=== PATIENT | male | born 1980 | race Caucasian/White ===

== ENCOUNTER → 2019-09-11 14:45 | Outpatient (CLI) | payer BC, SELFPAY ==
[2019-09-11 14:50] LABS: Adenovirus F 40/41, stool Not Detected (NotDetected); Astrovirus Not Detected (NotDetected); Campylobacter Not Detected (NotDetected); Clostridium Difficile A/B, PCR Not Detected (NotDetected); Cryptosporidium Not Detected (NotDetected); Cyclospora Cayetanesis Not Detected (NotDetected); Entamoeba histolytica Not Detected (NotDetected); Enteroaggregative E coli Not Detected (NotDetected); Enterotoxigenic E coli Not Detected (NotDetected); Giardia lamblia Not Detected (NotDetected); Norovirus Not Detected (NotDetected); Plesimonas Shigalloides, PCR Not Detected (NotDetected); Rotavirus A Not Detected (NotDetected); Salmonella, PCR Not Detected (NotDetected); Sapovirus Not Detected (NotDetected); Shiga-like toxin E coli Not Detected (NotDetected); Shigella Enterovasive E coli Not Detected (NotDetected); Vibrio Cholerae Not Detected (NotDetected); Vibrio, PCR Not Detected (NotDetected); Yersinia Entercolitica, PCR Not Detected (NotDetected)
[2019-09-11 16:54] LABS: Enteropathogenic E coli Detected (NotDetected)
== END ==
PROVIDERS: Visit Provider Family Medicine
DX: R19.7 Diarrhea, unspecified (principal); A04.0 Enteropathogenic Escherichia coli infection
CPT/HCPCS: 87507

== ENCOUNTER → 2020-03-02 10:28 | Outpatient (CLI) | payer OTHER, SELFPAY ==
[2020-03-02 13:14] LABS: Coronavirus 19 IgG Antibody Negative (Negative); Coronavirus 19 IgM Antibody Negative (Negative)
== END ==
PROVIDERS: Visit Provider Surgery
DX: Z01.818 Encounter for other preprocedural examination (principal)
CPT/HCPCS: 36415; 86328

== ENCOUNTER 2020-03-03 07:59 | Day surgery (SDC) | payer OTHER, SELFPAY ==
[2020-03-02 13:23] VITALS: BMI 33.9
[2020-03-03 09:18] VITALS: BP 132/79; PULSE 77; RESP 18; TEMP 36.9; O2SAT 97
[2020-03-03 10:24] VITALS: BP 144/65; PULSE 75; RESP 18; O2SAT 97
--- NOTE | 2020-03-03 10:28 | HMH.OPNOTE ---
Date of procedure: 03/03/20 Pre-op Diagnosis:: 1.5 cm inclusion cyst mid back Post-op Diagnosis:: Same Procedure performed:: Excision of 1.5 cm inclusion cyst mid back Surgeon:: Paulie Jolly MD Anesthesia: local Estimated blood loss (mL): 10 Operative findings:: Inclusion cyst excised in toto Operative note:: After informed consent was obtained the patient was taken to the procedure room. He was maintained in a seated position. His mid back was prepped and draped in a sterile fashion. After infiltration local anesthetic an elliptical incision was made around the lesion. The deeper subcutaneous tissue was dissected with scalpel. The cyst was excised in toto and passed off for pathologic evaluation. Electrocautery was utilized to achieve hemostasis. Lateral flaps were elevated with electrocautery. Skin was then reapproximated with 3-0 nylon in an interrupted fashion. Dressings were applied and the patient was transferred to recovery in stable condition. Condition: stable Disposition: no change Specimens:: 1.5cm inclusion cyst mid back Complications:: no immediate
== END 2020-03-03 10:35 | disposition home or self-care (01) ==
LOC: OUTP 08:00
PROVIDERS: PCP Family Medicine; Visit Provider Surgery
PROC: (CPT 11402; principal; 2020-03-03 09:30)
DX: L72.8 Other follicular cysts of the skin and subcutaneous tissue (principal); Z87.39 Personal history of other diseases of the musculoskeletal system and connective tissue; Z72.0 Tobacco use
CPT/HCPCS: 11402

== ENCOUNTER → 2021-10-02 12:41 | Outpatient (CLI) | payer OTHER, SELFPAY | PROVIDERS: Visit Provider Nurse Practitioner | DX: Z20.822 Contact with and (suspected) exposure to COVID-19 (principal) | CPT/HCPCS: C9803; U0003; U0005 ==

== ENCOUNTER → 2021-10-04 15:47 | Outpatient (CLI) | payer OTHER, SELFPAY ==
[2021-10-04 17:46] LABS: Adenovirus,PCR Not Detected (NotDetected); Bordetella Pertussis Not Detected (NotDetected); Chlamydophila Pneumoniae, PCR Not Detected (NotDetected); Coronavirus 19, PCR Not Detected (NotDetected); Coronavirus 229E Not Detected (NotDetected); Coronavirus NL63 Not Detected (NotDetected); Coronavirus OC43 Not Detected (NotDetected); Coronovirus HKU1,PCR Not Detected (NotDetected); Human Metapneumovirus Not Detected (NotDetected); Influenza A, PCR Not Detected (NotDetected); Influenza AH1, 2009 Not Detected (NotDetected); Influenza AH1, PCR Not Detected (NotDetected); Influenza AH3,PCR Not Detected (NotDetected); Influenza B, PCR Not Detected (NotDetected); Mycoplasma Pneumoniae, PCR Not Detected (NotDetected); Parainfluenza 1, PCR Not Detected (NotDetected); Parainfluenza 3, PCR Not Detected (NotDetected); Parainfluenza 4, PCR Not Detected (NotDetected); Respiratory Syncytial Virus Not Detected (NotDetected); Rhinovirus/Enterovirus Not Detected (NotDetected)
[2021-10-04 18:11] LABS: Basophils # 0.1 K/mm3 (0-0.2); Basophils % 1.5 % (0.1-2.0); Eosinophils # 0.1 K/mm3 (0.0-0.4); Eosinophils % 3.3 % (0.1-12.0); Hematocrit 51.5 % (42.0-52.0); Hemoglobin 17.1 g/dL (14.1-18.0); Lymphocytes # 1.2 K/mm3 (0.7-4.5); Lymphocytes % 33.4 % (10-50); Mean Corpuscular HGB Conc 33.2 g/dL (31.8-35.4); Mean Corpuscular Volume 87.4 fl (80-94); Mean Platelet Volume 8.9 fl (7.4-10.4); Monocytes # 0.3 K/mm3 (0.1-1.0); Monocytes % 9.2 % (1.7-9.3); Neutrophils # 1.9 K/mm3 (1.8-7.8); Neutrophils % 52.6 % (37.0-80.0); Platelet Count 247 K/mm3 (142-424); Red Blood Count 5.89 M/mm3 (4.60-6.20); Red Cell Distribution Width 13.5 % (11.5-17.5); White Blood Count 3.6 K/mm3 (4.8-10.8)
[2021-10-04 19:58] LABS: Parainfluenza 2, PCR Detected (NotDetected)
== END ==
PROVIDERS: PCP Psychiatry & Neurology Sleep Medicine; Visit Provider Physician Assistant
DX: Z20.822 Contact with and (suspected) exposure to COVID-19 (principal); B34.9 Viral infection, unspecified
CPT/HCPCS: 36415; 85025; 87581; 87632; 87798; C9803; U0003; U0005

== ENCOUNTER 2022-06-13 19:36 | Emergency (ER) | payer OTHER, SELFPAY ==
[2022-06-13 19:39] VITALS: RESP 20; TEMP 37; O2SAT 96; BMI 36.6
--- NOTE | 2022-06-13 20:59 | PC.NURSE ---
at assessing pt injury
--- NOTE | 2022-06-13 21:13 | HMH.EDEXTP ---
Discharge Plan Disposition Patient Disposition: Home, Self-Care Chief Complaint: Extremity Problem,Nontraumatic Prescriptions Prescriptions: No Action No Known Home Medications Referrals Follow up/Referrals: Gamal Morrissey MD [Primary Care Provider] - See instructions Clinical Impressions Clinical Impression: Avulsion of finger Instructions Patient Instructions: DI for Avulsion Laceration (Not Requiring Sutures) Discharge ED Provider: Brian Carmona Extremity Problem HPI General Chief complaint: Extremity Problem,Nontraumatic Stated complaint: AO@06/13@1900@HOME LEFT FINGER INJURED Time Seen by Provider: 06/13/22 21:13 Mode of Arrival: Ambulatory Source of Information: Patient, Spouse and Medical Record Limitations: No Limitations Description of Symptoms (Recalled from ER Triage Doc. by RN): pt states he was cleaning his buffing pad and his knife slipped and cut the side of his left index finger. pt c/o stinging History of Present Illness HPI Narrative: acute avulsion lac to distal lt index finger Complaint: other Onset (ago): hour(s) Location: left, upper extremity and other (index finger ) Associated symptoms: denies other symptoms Related Data Home Medications Medication Instructions Recorded Confirmed No Known Home Medications 03/02/20 06/13/22 Allergies Allergy/AdvReac Type Severity Reaction Status Date / Time venom-wasp Allergy Intermediate Hives Verified 03/15/20 09:33 PFSH PFSH 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 current occupational exposures/hazards: No caffeine: Yes ROS Obtained: Yes All systems reviewed & no additional complaints except as documented Physical Exam General General appearance: alert Head Head exam: normocephalic Eye Eye exam: Present PERRL and EOMI ENT ENT exam: Present mucous membranes moist Neck Neck exam: Present trachea midline Respiratory Respiratory exam: Absent respiratory distress Cardiovascular Cardiovascular exam: Present regular rate Expanded Upper Extremity Exam Left: Hand exam: Present full ROM and skin avulsion (avulsion flap distal lt index finger - not amenable to lac repair - ); Absent subungual hematoma Vascular exam: Normal capillary refill and radial pulse Neurological Exam Neurological exam: Present alert, oriented X3 and CN II-XII intact Skin Skin exam: Absent rash Medical Decision Making Medical Records Medical records reviewed: Yes I reviewed the patient's medical records. Jarad Inquiry Pt receiving controlled substance: No Vital Signs: 06/13/22 19:39 Temperature 98.6 F Temperature Source Oral Respiratory Rate 20 02 Sat by Pulse Oximetry 96 Oxygen Delivery Method Room Air Medical Decision Narrative: avulsion lac to distal lt index finger 1 cm Critical Care Time Critical Care Time Critical Care Time: No Attestation: On 06/13/22, the high probability of a clinically significant, sudden or life threatening deterioration of the following system(s) required my full and direct attention, intervention and personal management. The time I documented below is in addition to time spent performing reported procedures but includes the following listed in this critical care notation.
[2022-06-13 21:22] VITALS: BP 124/78; PULSE 80; RESP 20; TEMP 37; O2SAT 96
== END 2022-06-13 21:23 | disposition home or self-care (01) ==
PROVIDERS: Emergency Provider Emergency Medicine; PCP Family Medicine
DX: S61.211A Laceration without foreign body of left index finger without damage to nail, initial encounter (principal); W26.0XXA Contact with knife, initial encounter
CPT/HCPCS: 99282

== ENCOUNTER 2023-03-02 19:38 | Emergency (ER) | payer OTHER, SELFPAY ==
[2023-03-02 19:39] VITALS: BP 138/80; PULSE 117; RESP 16; TEMP 36.7; O2SAT 97; BMI 38.0
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
[2023-03-02 19:48] VITALS: BMI 38.0
--- NOTE | 2023-03-02 19:51 | ECG_ITS ---
APPROVED REPORT Exam: Resting ECG HR:105 bpm ECG Measurements Heart Rate 105 AXES MO 149 P 69 QRSd 105 QRS 43 QT 326 T 35 QTc 387 Conclusion SINUS TACHYCARDIA NONSPECIFIC T-WAVE ABNORMALITY ABNORMAL RHYTHM ECG UNCONFIRMED REPORT Electronically signed by : David Johnson MD 03/03/2023 08:59:28
[2023-03-02 20:01] VITALS: BP 138/80; PULSE 99; O2SAT 92
[2023-03-02 20:09] LABS: Basophils # 0.1 K/mm3 (0-0.2); Basophils % 0.8 % (0.1-2.0); Eosinophils # 0.4 K/mm3 (0.0-0.4); Hematocrit 48.9 % (42.0-52.0); Lymphocytes # 4.3 K/mm3 (0.7-4.5); Lymphocytes % 31.9 % (10-50); Mean Corpuscular HGB Conc 32.7 g/dL (31.8-35.4); Mean Corpuscular Hemoglobin 28.2 pg (27.0-31.2); Mean Corpuscular Volume 86.2 fl (80-94); Monocytes # 0.7 K/mm3 (0.1-1.0); Monocytes % 5.4 % (1.7-9.3); Neutrophils # 7.9 K/mm3 (1.8-7.8); Neutrophils % 58.9 % (37.0-80.0); Platelet Count 324 K/mm3 (142-424); Red Blood Count 5.67 M/mm3 (4.60-6.20); Red Cell Distribution Width 13.6 % (11.5-17.5); White Blood Count 13.4 K/mm3 (4.8-10.8)
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
--- NOTE | 2023-03-02 20:15 | PC.NURSE ---
pt is at ct
[2023-03-02 20:16] LABS: Chloride 102 mmol/L (98-107)
[2023-03-02 20:17] LABS: Potassium 3.8 mmoL/L (3.5-5.1); Sodium 137 mmol/L (136-145)
[2023-03-02 20:20] LABS: Alanine Aminotransferase 54 U/L (12-78); Albumin Level 4.1 g/dl (3.5-5.0); Albumin/Globulin Ratio 1.2 (1.1-1.8); Alkaline Phosphatase 91 U/L (38-126); Anion Gap 13.8 mEq/L (5-15); Aspartate Amino Transferase 48 U/L (17-59); Blood Urea Nitrogen 17 mg/dl (9-20); Calcium 9.1 mg/dl (8.4-10.2); Carbon Dioxide 25 mmol/L (22.0-30.0); Creatinine Clearance Estimated 147 mL/min (50-200); Estimated Glomerular Filt Rate 67 ml/min (>60); GFR (African American) 81 ML/MIN (>60); Globulin 3.3 g/dL (1.3-3.2); Glucose 131 mg/dl (74-100); Total Protein,Serum 7.4 g/dl (6.3-8.2)
[2023-03-02 20:22] LABS: Bilirubin,Total 0.1 mg/dl (0.2-1.3)
[2023-03-02 20:49] VITALS: BP 118/63; PULSE 93; RESP 18; TEMP 36.7; O2SAT 95
== END 2023-03-02 21:03 | disposition home or self-care (01) ==
PROVIDERS: Family Medicine; Emergency Provider Emergency Medicine; PCP Family Medicine
DX: R07.81 Pleurodynia (principal); V86.65XA Passenger of 3- or 4- wheeled all-terrain vehicle (ATV) injured in nontraffic accident, initial encounter; F17.210 Nicotine dependence, cigarettes, uncomplicated
CPT/HCPCS: 70450; 71260; 72125; 74177; 80053; 85025; 93005; 99284; 99285; Q9967

== ENCOUNTER 2023-09-21 02:56 | Emergency (ER) | payer OTHER, SELFPAY ==
--- NOTE | 2023-09-21 03:03 | XR_ITS ---
PROCEDURE INFORMATION: Exam: XR Chest Exam date and time: 09/21/2023 3:17 AM Age: 43 years old Clinical indication: Cough; Additional info: Cough x6 wks, SOA TECHNIQUE: Imaging protocol: Radiologic exam of the chest. Views: 2 views. COMPARISON: CT CHEST W CON 03/02/2023 8:11 PM FINDINGS: Lungs: Unremarkable. No consolidation. Pleural spaces: Unremarkable. No pleural effusion. No pneumothorax. Heart/Mediastinum: Unremarkable. No cardiomegaly. Bones/joints: Unremarkable. IMPRESSION: No acute findings.
[2023-09-21 03:06] VITALS: BP 148/105; PULSE 108; PULSE 120; RESP 15; TEMP 36.8; O2SAT 95; O2SAT 97; BMI 39.3
--- NOTE | 2023-09-21 03:09 | ED_ITS ---
Discharge Plan Disposition Patient Disposition: Home, Self-Care Condition: Good Prescriptions Prescriptions: New doxycycline hyclate 100 mg tablet 100 mg PO BID 5 Days Qty: 10 0RF prednisone 50 mg tablet 50 mg PO DAILY 5 Days Qty: 5 0RF [id number] [Bromfed DM] 2-30-10 mg/5 mL syrup 5 ml PO Q6H PRN (Reason: allergy symptoms) Qty: 118 0RF cetirizine [Zyrtec] 10 mg tablet 10 mg PO DAILY Qty: 30 0RF fluticasone propionate [Flonase Allergy Relief] 50 mcg/actuation spray,suspension 1 spray intranasal DAILY Qty: 16 0RF Rx Instructions: administer into each nostril Referrals Follow up/Referrals: Gamal Morrissey MD [Primary Care Provider] - See instructions Activity Restrictions/Add. Instructions Additional Instructions/Restrictions: You were evaluated in the emergency department today. I recommend that you stop smoking, as this can prolong your cough and symptoms. 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 You are already given your initial dose of nestor roids and antibiotics today, so you will not need antibiotic again until tonight, and you will take the steroid tomorrow. Use your inhaler every 4-6 hours as needed for wheezing. Take Tylenol and ibuprofen at home as needed for pain and fevers. Follow-up with your primary care provider over the next week for reassessment. Return to the emergency department for any new or worsening symptoms. Clinical Impressions Clinical Impression: Bronchitis, Wheezing Instructions Patient Instructions: DI for Chronic Bronchitis, DI for Acute Bronchitis Discharge ED Provider: [facility] HPI General Chief complaint: Upper Respiratory Infection Stated complaint: cough Time Seen by Provider: 09/21/23 03:01 History of Present Illness HPI narrative: This patient is a 43-year-old male with history of tobacco abuse presenting to the emergency department for evaluation with concern for persistent cough for 1.5 months now. He states that it initially started out with a head cold, however he cannot get rid of the cough. He states that he coughs to the point where he gets lightheaded and has even passed out before. He also notes that he hears himself wheezing when he lies down. He denies any prior diagnoses of COPD or asthma in the past. He states that he passed out before last as a result of coughing. He has not been seen for this before. He came in tonight because he was cleaning out his wood stove at home when he started coughing and couldn't stop. Related Data Previous Rx's Medication Instructions Recorded arrosidmbfzlfbz-[id number] 5 ml PO Q6H PRN allergy symptoms 09/21/23 2 mg-30 mg-10 mg/5 mL oral syrup #118 mL (Bromfed DM) cetirizine 10 mg tablet (Zyrtec) 10 mg PO DAILY #30 tabs 09/21/23 doxycycline hyclate 100 mg tablet 100 mg PO BID 5 days #10 tabs 09/21/23 fluticasone propionate 50 1 spray intranasal DAILY #16 grams 09/21/23 mcg/actuation nasal spray,suspension (Flonase Allergy Relief) prednisone 50 mg tablet 50 mg PO DAILY 5 days #5 tabs 09/21/23 Allergies Allergy/AdvReac Type Severity Reaction Status Date / Time venom-wasp Allergy Intermediate Hives Verified 03/15/20 09:33 [facility] Disclaimer: The information contained in this section may have been updated after the patient was seen, as this information can be updated by other users. 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 current occupational exposures/hazards: No caffeine: Yes ROS Obtained: Yes All systems reviewed & no additional complaints except as documented Physical Exam General General appearance: alert and in no apparent distress Head Head exam: atraumatic and normocephalic Eye Eye exam: Present normal appearance, PERRL and EOMI ENT ENT exam: Present normal exam, normal oropharynx, mucous membranes moist and normal external ear exam Neck Neck exam: Present normal inspection, full ROM and trachea midline; Absent tenderness Chest Chest inspection: Present normal inspection and symmetric chest wall rise; Absent tenderness Respiratory Respiratory exam: Present normal lung sounds bilaterally; Absent respiratory distress, wheezes, stridor or accessory muscle use Cardiovascular Cardiovascular exam: Present normal rhythm and tachycardia Abdominal Exam Abdominal exam: Present soft; Absent distention, tenderness or guarding Extremities Exam Extremities exam: Present normal inspection, full ROM and normal capillary refill; Absent tenderness or edema Back Exam Back exam: Present normal inspection and full ROM; Absent tenderness Neurological Exam Neurological exam: Present alert, oriented X3, CN II-XII intact and normal gait; Absent motor sensory deficit Psychiatric Psychiatric exam: Present normal affect and normal mood Skin Skin exam: Present warm and dry Medical Decision Making Medical Records Medical records reviewed: Yes I reviewed the patient's medical records. Jarad Inquiry Pt receiving controlled substance: No Vital Signs: 09/21/23 03:06 09/21/23 03:25 09/21/23 03:25 Temperature 98.2 F Temperature Source Oral Pulse Rate 124 H 108 H Pulse Rate [Right Brachial] 108 H Respiratory Rate 15 Blood Pressure Blood Pressure [Right Arm] 148/105 H Blood Pressure Mean [Right Arm] 119 Blood Pressure Source [Right Arm] Automatic Cuff Blood Pressure Position [Right Arm] Sitting 02 Sat by Pulse Oximetry 95 Oxygen Delivery Method Room Air 09/21/23 03:06 Temperature Temperature Source Pulse Rate 120 H Pulse Rate [Right Brachial] Respiratory Rate Blood Pressure 148/105 H Blood Pressure [Right Arm] Blood Pressure Mean [Right Arm] Blood Pressure Source [Right Arm] Blood Pressure Position [Right Arm] 02 Sat by Pulse Oximetry 97 Oxygen Delivery Method Room Air Lab Data Lab results reviewed: Yes I reviewed the patient's lab results. Orders (Tests/Meds): ED MEDICATIONS Discontinued Medications Generic Name Dose Route Start Last Admin Trade Name Freq PRN Reason Stop Dose Admin Albuterol Sulfate 2 puff 09/21/23 03:40 09/21/23 03:47 Albuterol-Hfa 90mcg/Puff Inhaler 8gm 09/21/23 03:41 2 puff ONCE ONE Administration Albuterol/Ipratropium 3 ml 09/21/23 03:14 09/21/23 03:24 Ipratropium/Albuterol 3 Ml Neb 09/21/23 03:15 3 ml ONCE ONE Administration Doxycycline Hyclate 100 mg 09/21/23 03:40 09/21/23 03:46 Doxycycline Hycl 100 Mg Tablet PO 09/21/23 03:41 100 mg ONCE ONE Administration Miscellaneous 1 unit 09/21/23 03:38 09/21/23 03:47 Aerochamber/Optihaler MC 09/21/23 03:39 1 unit ONCE ONE Administration Prednisone 60 mg 09/21/23 03:38 09/21/23 03:46 Prednisone 20mg Tab PO 09/21/23 03:39 60 mg ONCE ONE Administration ORDERS Category Date Time Status XR chest 2V Stat Exams 09/21/23 03:03 Taken ECG initial Besson Routine Y 09/21/23 03:18 Completed ECG Data Tracing #1: I reviewed this ECG and interpreted as documented below: Sinus tachycardia with a ventricular rate of [address] changes concerning for ischemia. Q waves noted in II and aVF, which were also present on prior EKG. No significant changes noted from prior EKG. ECG initial impression date: 09/21/23 ECG initial impression time: 03:20 Medical Decision Narrative: In summary, this patient is a 43-year-old male presenting to the Emergency Department for evaluation of cough for 1.5 months and wheezing. Differential diagnoses considered include but are not limited to viral syndrome, bronchitis, pneumonia, COPD, asthma, respiratory failure. Ruling out the most morbid conditions drove assessment. It should be noted patient's history includes tobacco abuse which is not at goal therapy. This complicates all aspects of care by increasing patient's risk for morbidity. On exam, the patient is nontoxic-appearing. He has reassuring cardiopulmonary exam with no notable wheezing or rhonchi, however breath sounds are slightly diminished. He is slightly tachycardic, but oxygen saturation is normal on room air. Workup included 2 view chest x-ray and EKG. Given diminished breath sounds, patient was given a DuoNeb to assess for symptomatic improvement. I independently interpreted x-ray prior to the radiologist read and noted no obvious large focal consolidation, pneumothorax, cardiomegaly, or other concerns. Please see their read for final interpretation. EKG is reassuring. He does have Q waves, which were also present on prior EKG. On reassessment, he had good improvement after administration of DuoNeb. Given his extensive smoking history, I feel he may have some component of COPD. Given this, I gave him a very short course of doxycycline as well as prednisone in addition to an albuterol inhaler. He was also given prescriptions for Zyrtec, Flonase, and Bromfed for symptomatic improvement. At this time, exam is reassuring and I feel the patient is appropriate for discharge with close follow-up with his primary care provider for reassessment over the next week. He expressed understanding agreement. I counseled him on smoking cessation, and he was discharged in stable condition after all questions were answered. Critical Care Critical Care Time Critical Care Time: No
--- NOTE | 2023-09-21 03:18 | ECG_ITS ---
APPROVED REPORT Exam: Resting ECG HR:101 bpm ECG Measurements Heart Rate 101 AXES NV 143 P 62 QRSd 109 QRS 30 QT 338 T 8 QTc 396 Conclusion SINUS TACHYCARDIA Isloated Q in III - probable normal variant O/W NORMAL ECG UNCONFIRMED REPORT Electronically signed by : David Johnson MD 09/22/2023 08:21:04
[2023-09-21] MEDS: IPRATROPIUM/ALBUTEROL 3 ML NEB IH (03:24)
[2023-09-21 03:25] VITALS: PULSE 108; PULSE 124
[2023-09-21] MEDS: predniSONE 20MG TAB 60 MG PO (03:46)
[2023-09-21] MEDS: DOXYCYCLINE HYCL 100 MG TABLET PO (03:46)
[2023-09-21] MEDS: AEROCHAMBER/OPTIHALER 1 UNIT MC (03:47)
[2023-09-21] MEDS: ALBUTEROL-HFA 90MCG/PUFF INHALER 8GM 2 PUFF IH (03:47)
[2023-09-21 04:09] VITALS: BP 128/83; PULSE 107; RESP 18; TEMP 36.6; O2SAT 96
== END 2023-09-21 04:10 | disposition home or self-care (01) ==
PROVIDERS: Emergency Provider Emergency Medicine; PCP Family Medicine
DX: J20.9 Acute bronchitis, unspecified (principal); R06.2 Wheezing; F17.210 Nicotine dependence, cigarettes, uncomplicated; R00.0 Tachycardia, unspecified
CPT/HCPCS: 71046; 93005; 99284

== ENCOUNTER 2023-11-21 09:58 | Outpatient (CLI) | payer OTHER, SELFPAY ==
[2023-11-21 10:34] LABS: Basophils # 0.1 K/mm3 (0-0.2); Basophils % 1.2 % (0.1-2.0); Eosinophils # 0.3 K/mm3 (0.0-0.4); Eosinophils % 2.7 % (0.1-12.0); Hematocrit 49.1 % (42.0-52.0); Hemoglobin 16.2 g/dL (14.1-18.0); Lymphocytes # 3.3 K/mm3 (0.7-4.5); Mean Corpuscular HGB Conc 33.1 g/dL (31.8-35.4); Mean Corpuscular Hemoglobin 29.2 pg (27.0-31.2); Mean Corpuscular Volume 88.2 fl (80-94); Mean Platelet Volume 8.3 fl (7.4-10.4); Monocytes # 0.7 K/mm3 (0.1-1.0); Monocytes % 6.5 % (1.7-9.3); Neutrophils # 6.5 K/mm3 (1.8-7.8); Neutrophils % 59.6 % (37.0-80.0); Platelet Count 309 K/mm3 (142-424); Red Blood Count 5.57 M/mm3 (4.60-6.20); Red Cell Distribution Width 13.8 % (11.5-17.5); White Blood Count 10.9 K/mm3 (4.8-10.8)
[2023-11-21 11:00] LABS: Alanine Aminotransferase 56 U/L (12-78); Albumin Level 4.1 g/dl (3.5-5.0); Albumin/Globulin Ratio 1.5 (1.1-1.8); Alkaline Phosphatase 86 U/L (38-126); Anion Gap 10.3 mEq/L (5-15); Aspartate Amino Transferase 32 U/L (17-59); Bilirubin,Total 0.4 mg/dl (0.2-1.3); Blood Urea Nitrogen 15 mg/dl (9-20); Calcium 9.6 mg/dl (8.4-10.2); Carbon Dioxide 26 mmol/L (22.0-30.0); Chloride 107 mmol/L (98-107); Cholesterol 299 mg/dl (140-200); Estimated Glomerular Filt Rate 107 ml/min (>60); GFR (African American) 129 ML/MIN (>60); Globulin 2.8 g/dL (1.3-3.2); Glucose 152 mg/dl (74-100); HDL Cholesterol 30 mg/dl (40-60); Potassium 4.3 mmoL/L (3.5-5.1); Sodium 139 mmol/L (136-145); Total Protein,Serum 6.9 g/dl (6.3-8.2); Triglycerides 289 mg/dl (30-150); VLDL Cholesterol 58 mg/dL (0-40)
[2023-11-21 11:06] LABS: Erythrocyte Sedimentation Rate 4 mm/hr (0-15)
[2023-11-21 11:11] LABS: Direct LDL Cholesterol 189.58 mg/dL (100-129)
[2023-11-21 11:14] LABS: Troponin I < 0.01 ng/ml (0.00-0.034)
[2023-11-21 11:16] LABS: 25-OH Vitamin D, Total 25.9 ng/mL (30-100)
[2023-11-21 11:31] LABS: Prostate Specific Ag Screen 0.5 ng/ml (0.0-4.0); Thyroid Stimulating Hormone 1.37 uIU/mL (0.465-4.68)
[2023-11-21 11:50] LABS: Vitamin B12 349 pg/mL (239-931)
[2023-11-29 04:29] LABS: Testosterone, Total, LC/MS 382 ng/dL (.)
== END 2023-11-21 23:59 ==
LOC: LAB 10:00
PROVIDERS: PCP Physician Assistant; Visit Provider Physician Assistant
DX: R07.9 Chest pain, unspecified (principal); R53.83 Other fatigue; E55.9 Vitamin D deficiency, unspecified; E78.5 Hyperlipidemia, unspecified; R73.09 Other abnormal glucose; Z12.5 Encounter for screening for malignant neoplasm of prostate; Z13.220 Encounter for screening for lipoid disorders
CPT/HCPCS: 36415; 80053; 80061; 82306; 82607; 84403; 84443; 84484; 85025; 85651; G0103

== ENCOUNTER 2023-12-04 07:27 | Outpatient (CLI) | payer OTHER, SELFPAY ==
[2023-12-04] VITALS (9 sets, daily range): BP systolic 109–140; BP diastolic 64–89; PULSE 58–88; RESP 16–17; TEMP 36.3; O2SAT 94–96; BMI 39.4
--- NOTE | 2023-12-04 07:29 | CA_ITS ---
APPROVED REPORT EXAM: Comprehensive 2D, Doppler, and color-flow Echocardiogram Marketing Specialist: Tara Ellison CRT Ht: 6 ft 1 in Wt: 299lbs BSA: 2.55 BP: 143/86 mmHg Indications: Abnormal ECG, Chest Pain, Shortness of Breath, Obesity, Fatigue 2D Dimensions Left Atrium 3.53 cm LA Volume 30.50 mL LVOT 2.16 cm (M/F) 1.5-2.5 LA Volume Index 12.00 mL/m2 (M/F) 16-34 EF AP4 50.80 % GL Strain -13.9 % M-Mode Dimensions RVDd 2.97 cm (0.9-2.6) LVDd 4.62 cm (3.5-5.7) Ao Diam 3.99 cm (2.0-3.7) LVDs 2.86 cm (3.5-5.7) IVSd 1.75 cm (0.6-1.1) PWd 0.82 cm (0.6-1.1) EF (Teich) 68.40% FS 38.10% EDV (Teich) 98.30 mL TAPSE 2.22 (<1.7) ESV (Teich) 31.10 mL LV Diastology E Decel Time 242 (160-240 msec) E/A Ratio 0.74 MED E' 7.3 (>= 7 cm/sec) MED A' 10.10 cm/s E'/MED E' Ratio 5.32 (<= 14) LAT E' 11.0 (>= 10 cm/sec) LAT A' 12.60 cm/s E/LAT E' Ratio 3.53 (<= 14) Aortic Valve AoV Peak Marlon. 122.0 (50-130 cm/s) AO Peak GR. 6.10 mmHg Mitral Valve MV E Max Marlon. 39.0 (40-130 cm/s) MV A Velocity 52.0 (40-130 cm/s) E/A Ratio 0.74 MV Decel. Time 242 (160-240 ms) Tricuspid Valve TR P. Velocity 234.00 cm/s RAP Estimate 10.00 mmHg RVSP 32.00 mmHg Left Ventricle The left ventricle is normal size. The left ventricular systolic function is normal. The left ventricular ejection fraction is within the normal range. There is normal left ventricular wall thickness. There is normal LV segmental wall motion. The left ventricular diastolic function is normal. LVEF is 55%. Right Ventricle The right ventricle is normal size. The right ventricular systolic function is normal. Atria The left atrium size is normal. The right atrium size is normal. There is no Doppler evidence of interatrial shunt. Aortic Valve The aortic valve opens well. There is no aortic valvular stenosis. No aortic regurgitation is present. Mitral Valve The mitral valve is normal in structure. No evidence of mitral valve stenosis. There is no mitral valve regurgitation noted. Tricuspid Valve The tricuspid valve leaflets are thin and pliable. Trace tricuspid regurgitation. There is insufficient TR jet to estimate RVSP. Pulmonic Valve The pulmonary valve is normal in structure. Trace pulmonic regurgitation. Great Vessels The aortic root is normal in size. The ascending aorta is normal in size. IVC is normal in size and collapses >50% with inspiration. Pericardium There is no pericardial effusion. Other Information Study Quality: Fair Conclusion Normal biventricular systolic function. No significant valvular stenosis or regurgitation. Electronically signed by : Vidhya Gomez MD 12/06/2023 22:27:35
[2023-12-04] MEDS: METOPROLOL TARTRATE 50MG TABLET PO (08:37)
[2023-12-04] MEDS: IVABRADINE HCL 7.5MG TABLET PO (08:37)
[2023-12-04] MEDS: METOPROLOL TARTRATE 50MG TABLET *IVABRADINE+METOPROLOL REGIMINE 50 MG PO (09:25)
--- NOTE | 2023-12-04 10:12 | CT_ITS ---
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 A noncontrast coronary calcium scan was performed. A CT attenuation threshold of 130 Hounsfield units (HU) was used for the detection of calcium in contiguous voxels of 1 sq mm in area to be counted as individual lesions. Bolus tracking in the ascending aorta with a threshold of 180 HU was performed. Immediately afterwards, ECG synchronized cardiac CT was then performed from the cardiac base to apex using retrospective gating with ECG tube current modulation. A total of 85 mL of Isovue 370 mg/mL contrast medium was administered at 5 mL/sec followed by a saline flush using a biphasic injection protocol. A tube voltage of 120 KVp was used. The patient received the following medications prior to the cardiac CT. 125 mg of oral metoprolol 15 mg of oral ivabradine 0.8 mg of sublingual nitroglycerin The average heart rate at the time of acquisition was 51 bpm and regular. Image Reconstruction Transaxial images were reconstructed at 0.67 mm slide thickness. Data was reviewed interactively on an advanced workstation capable of 2 and 3-dimensional displays in all conventional reconstruction formats, including multiplanar reformations, maximum intensity projections, curved multiplanar reformations, and volume rendered reconstructions. When applicable, selected routine images describing the relevant coronary anatomy and pathology were saved and sent to PACS. Complications None Technical Quality Overall image quality was suboptimal. Coronary artery opacification was adequate. Total DLP (Dose-Length Product) is 2997.9 mGy-cm. The reported value represents the total of one or more individual components during the CT acquisition of this date and at this time, and as such, the same value may appear in more than one CT report depending on the interpreting/reporting physicians. COMPARISON None FINDINGS CT Coronary Calcium Scoring LMA (Left Main Artery) = 69 LAD (Left Anterior Descending) = 161 LCX (Left Coronary Circumflex) = 20 RCA (Right Coronary Artery) = 2 Total Calcium Score = 252 using the AJ-130 method. The observed calcium score of 252 is at 98th percentile for subjects of the same age, sex, and race/ethnicity. The interpretation of the calcium heart score is based on the following continuum*: 0 = no calcified plaque detected (risk of coronary artery disease is very low ??? less than 5%) 1-10 = calcium detected in extremely minimal levels (risk of coronary diseases is still low ??? less than 10%) 11-100 = mild levels of plaque detected with certainty (mild or minimal narrowing of heart arteries is likely) 101-400 = definite,at least moderate levels of plaque detected (relatively high risk of a heart attack within 3-5 years) >401-999 = extensive levels of plaque detected (high risk of heart attack, high levels of vascular disease are present, high likelihood of at least one significant coronary narrowing) *The calcium heart score quantifies the burden of coronary calcification/plaque in the coronary arteries. The calcium heart score is not able to evaluate the presence or burden of non-calcified (i.e. soft) plaque. There is no identifiable calcification in the aortic valve, mitral annulus or mitral valve, pericardium, or myocardium. Coronary CT Angiography The coronary arterial system is right dominant. Quantitative Stenosis Grading: Left Main (LM): The left main originates normally from the left sinus of Valsalva. The LM bifurcates into the left anterior descending artery and left circumflex artery. The LM is patent with no evidence of atherosclerosis. Left Anterior Descending (LAD) and Diagonal Branches: The LAD gives off 2 diagonal branches. There is mixed calcified/noncalcified plaque in the proximal LAD and involving the first diagonal branch, with up to 70-90% luminal stenosis in the proximal LAD segment. Left Circumflex (LCX) and Obtuse Marginals (OM): The LCX gives off 1 Obtuse Marginal (OM) branch. There are scattered foci of calcified plaque in the proximal LCx, but without luminal stenosis. Right Coronary Artery (RCA): The RCA originates normally from the right sinus of Valsalva. The RCA gives off a posterior descending artery (PDA) and posterolateral (PL) branches. There is 1 focus of calcification in the proximal RCA, but without luminal stenosis. Non-Coronary Cardiac Findings: Analysis of the left ventricular (LV) structure and function was performed after 3-D reconstruction of the LV from axial images, with user-corrected automatic contouring for assessment of LV volumes and user-defined reconstruction from oblique planes for measurement of 3-D cardiac structure and function. -The left ventricle systolic function is normal. -There is no left atrial appendage filling defect. Two right pulmonary veins and two left pulmonary veins drain normally into the left atrium. -No pericardial thickening or calcification. -Central and branch pulmonary arteries in the [id number] are unremarkable. -Thoracic aorta within the visualized thoracic aortic-branches in the [id number] is unremarkable. Extracardiac Structures No significant extra-cardiac findings. Note, however, that this study is focused on the cardiac findings. IMPRESSION -Presence of coronary calcification with an Agatston score = 252 using the AJ-130 method. -The observed calcium score of 252 is at 98th percentile for subjects of the same age, sex, and race/ethnicity. -Presence of significant flow-limiting atherosclerosis of the proximal LAD segment (involving the first diagonal branch). -CAD-RADS 4A. Management recommendations per ACC/AHA guidelines*, as clinically appropriate. *Recommendations: CAD RADS 0: Reassurance. Consider non-atherosclerotic causes of chest pain. CAD RADS 1: Consider non-atherosclerotic causes of chest pain. Consider preventive therapy and risk factor modification. CAD RADS 2: Consider non-atherosclerotic causes of chest pain. Consider preventive therapy and risk factor modification, particularly for patients with nonobstructive plaque in multiple segments. CAD RADS 3: Consider further functional testing. Consider symptom-guided anti-ischemic and preventive pharmacotherapy as well as risk factor modification per published guideline statements. CAD RADS 4A: Consider further functional testing or invasive coronary angiography with revascularization per published guideline statements. Consider symptom-guided anti-ischemic and preventive pharmacotherapy as well as risk factor modification per published guideline statements. CAD RADS 4B: Invasive coronary angiography recommended with revascularization per published guideline statements. Consider symptom-guided anti-ischemic and preventive pharmacotherapy as well as risk factor modification per published guideline statements. CAD RADS 5: Consider invasive angiography and/or viability assessment with revascularization per published guideline statements. Consider symptom-guided anti-ischemic and preventive pharmacotherapy as well as risk factor modification per published guideline statements. CRITICAL RESULT None COMMUNICATION Per this written report The coronary and cardiac findings of this CCTA were reviewed, reported, and signed by Jermaine Gomez MD (Accredited Legal Secretary) Conclusion Electronically signed by : Vidhya Gomez MD 12/09/2023 11:55:18
[2023-12-04] MEDS: NITROGLYCERIN 0.4MG SL TABLET 0.800000000000000044 MG SL (10:29)
[2023-12-04] MEDS: METOPROLOL TARTRATE 5MG/5ML VIAL 5 MG IV (10:38)
[2023-12-04] MEDS: 0.9 % SODIUM CHLORIDE 50 ML VIAL 80 ML IV (11:06)
[2023-12-04] MEDS: SODIUM CHLORIDE 0.9% 10ML SYR (RAD ONLY) 10 ML IV (11:07)
[2023-12-04] MEDS: IOPAMIDOL-370 (76%);100ML BOTTLE 170 ML IV (11:07)
== END 2023-12-04 11:15 | disposition home or self-care (01) ==
LOC: RT 07:27 → RAD 08:25
PROVIDERS: PCP Physician Assistant; Visit Provider Internal Medicine
DX: R06.09 Other forms of dyspnea (principal); R07.9 Chest pain, unspecified; I25.10 Atherosclerotic heart disease of native coronary artery without angina pectoris; I25.84 Coronary atherosclerosis due to calcified coronary lesion; R94.31 Abnormal electrocardiogram [ECG] [EKG]
CPT/HCPCS: 75571; 75574; 93306; Q9967

== ENCOUNTER 2023-12-31 12:59 | Observation (INO) | payer OTHER, SELFPAY ==
[2023-12-31] VITALS (21 sets, daily range): BP systolic 113–151; BP diastolic 59–91; PULSE 67–91; RESP 14–19; TEMP 36.5–36.9; O2SAT 94–99; BMI 39.4
--- NOTE | 2023-12-31 07:04 | IR_ITS ---
APPROVED REPORT Patient Location: Outpatient PROCEDURES Left heart catheterization Left ventriculogram Selective coronary angiogram Drug-eluting stent deployment to the ostial proximal and mid dominant right coronary artery Drug-eluting stent deployment to the proximal LAD extending into the first diagonal artery Attempted angioplasty of a chronically occluded LAD INDICATION Coronary artery disease, Abnormal CCTA, Angina pectoris Informed consent was obtained prior to the procedure. COMPLICATIONS NONE Estimated Blood Loss: LESS THAN 10 ML TECHNIQUE One percent lidocaine used to anesthetize the right anterior aspect of the wrist. The right radial artery was accessed via the Seldinger technique. A 6 [place] sheath was placed in the right radial artery. 2.5 mg of Verapamil, 800 mcg of nitroglycerin, 1mg Lidocaine and 5000 U Heparin were given through the arterial sheath. The papa catheter was also used to perform left heart catheterization, left ventriculogram and selective coronary angiogram. At the end of the diagnostic angiogram therapeutic heparin was administered giving a therapeutic ACT and the guide catheter was placed in left main artery followed by Choice PT extra-support wire being placed into the LAD and first diagonal artery. A 3.5 x 22 mm Girish frontier stent was placed in the proximal LAD and deployed at 16 dianne reducing the stenosis. MARY ANNE-3 flow was present before and after the procedure. A 3.5 x 12 mm Elrod frontier stent was placed in the proximal to midportion of the stent and deployed at 24 dianne to further post dilate. There was improved collateralization to the chronically occluded LAD. Multiple attempts were made along with multiple wires to cannulate the LAD however this was unsuccessful therefore the guide catheter was placed in the right coronary artery and the same wire was placed distally in the right coronary artery. A 4 mm x 22 mm Elrod frontier stent was deployed at 20 dianne reducing the severe stenosis to 0%. There appeared to be spasm proximally with significant dampening. Closer observation demonstrated there was a proximal dissection. While nitroglycerin was attempted to be administered the right coronary artery became occluded. The wire was quickly passed through the occlusion and an additional 4 mm x 18 mm Girish frontier stent was deployed at 20 dianne proximal to this. MARY ANNE-3 flow was restored after less than 1 minute. An additional an additional 4 mm x 22 mm Girish frontier stent was then placed proximal to this as there remained a dissection this overlapped the second stent and was deployed at 20 dianne. Although angiographically there appeared to be wide patency each time the catheter was inserted into the right coronary there was dampening which indicated there was an ostial dissection. Because of this a 4 mm x 18 mm Girish frontier stent was then placed proximal to the third stent it still overlapping and deployed at 22 dianne. Excellent angiographic results were obtained. MARY ANNE-3 flow was present before and after the procedure. Following this an EBU 3 guide catheter was exchanged and placed back into the left main artery where further attempts were made to try to open the chronically occluded LAD. A guide liner was used during the first part of the revascularization above the LAD. After multiple attempts were made and copious contrast was used it was decided to abort the procedure and the apparatus was removed. The sheath was removed and hemostasis was achieved using TR banding patient was transferred to the postop putting in stable condition ANGIOGRAPHIC RESULTS The left main artery Normal The left anterior descending artery Has a proximal concentric 80% stenosis and gives rise to a large first diagonal artery which has multiple branches. The LAD is then occluded after the first diagonal artery and collateralizes via [id number] collaterals with some right to left collaterals The circumflex artery Is a large-caliber nondominant vessel and has mid vessel 30 to 40% stenosis The right coronary artery Large dominant vessel with a mid vessel 80% stenosis The YO ventriculogram reveals Preserved at 50% with mild anterior wall hypokinesis The left ventricular end-diastolic pressure 20 mmHg IMPRESSION Chronically occluded proximal LAD as described above Successful stenting of the proximal LAD extending the first diagonal artery severe disease reduced to 0% with 1 drug-eluting stent Attempted yet unsuccessful percutaneous revascularization of chronically occluded LAD Successful stenting of the ostial proximal and mid dominant right coronary severe disease reduced to 0% with 4 contiguous drug-eluting stents Preserved ejection fraction with regional wall motion abnormality involve the anterior wall Elevated LVEDP PLAN 1. Effient 10 mg daily plus aspirin 81 mg daily 2. LDL less than 55 to be achieved with high intensity statin 3. Avoidance of tobacco products 4. Maximize beta-blockers and antianginals 5. In 2 weeks patient be brought back to the [facility] will undergo groin access with attempts to revascularize the chronically occluded LAD. If this is unsuccessful patient will be referred for single-vessel ALVAREZ to LAD in the next couple of months 6. Cardiac rehabilitation after the LAD is opened 7. Sleep study recommended if not already diagnosed with sleep apnea Electronically signed by : Marcell Pina MD 12/31/2023 17:13:25
[2023-12-31 08:39] LABS: Basophils # 0.2 K/mm3 (0-0.2); Basophils % 1.3 % (0.1-2.0); Eosinophils # 0.3 K/mm3 (0.0-0.4); Eosinophils % 2.8 % (0.1-12.0); Hematocrit 48.9 % (42.0-52.0); Lymphocytes # 3.2 K/mm3 (0.7-4.5); Mean Corpuscular HGB Conc 32.7 g/dL (31.8-35.4); Mean Corpuscular Hemoglobin 29.2 pg (27.0-31.2); Mean Corpuscular Volume 89.3 fl (80-94); Mean Platelet Volume 8.1 fl (7.4-10.4); Monocytes # 0.8 K/mm3 (0.1-1.0); Monocytes % 6.7 % (1.7-9.3); Neutrophils # 6.9 K/mm3 (1.8-7.8); Neutrophils % 61.1 % (37.0-80.0); Platelet Count 293 K/mm3 (142-424); Red Blood Count 5.47 M/mm3 (4.60-6.20); Red Cell Distribution Width 13.6 % (11.5-17.5); White Blood Count 11.4 K/mm3 (4.8-10.8)
[2023-12-31 08:58] LABS: Chloride 107 mmol/L (98-107)
[2023-12-31 08:59] LABS: Potassium 4.1 mmoL/L (3.5-5.1); Sodium 139 mmol/L (136-145)
[2023-12-31 09:02] LABS: Anion Gap 6.1 mEq/L (5-15); Blood Urea Nitrogen 13 mg/dl (9-20); Calcium 9.3 mg/dl (8.4-10.2); Carbon Dioxide 30 mmol/L (22.0-30.0); Creatinine Clearance Estimated 266 mL/min (50-200); Estimated Glomerular Filt Rate 124 ml/min (>60); GFR (African American) 150 ML/MIN (>60); Glucose 124 mg/dl (74-100)
[2023-12-31] MEDS: LIDOCAINE 1% 10ML MDV 20 ML IJ ×2 (10:28→10:29)
[2023-12-31] MEDS: HEPARIN 1,000 UNITS/ML 10ML VIAL (CATH LAB) 10000 UNIT IV ×2 (10:28→11:01)
[2023-12-31] MEDS: 0.9 % SODIUM CHLORIDE 500 ML 25 ML IV (10:28)
[2023-12-31] MEDS: HEPARIN 1,000 UNITS/500ML NS (CATH LAB) 3000 UNIT IV (10:28)
[2023-12-31] MEDS: NITROGLYCERIN 800MCG/8ML SYR (CATH LAB) 800 MCG IA ×3 (10:29→11:59)
[2023-12-31] MEDS: VERAPAMIL 2.5MG/ML 2ML VIAL 2.5 MG IV (10:29)
[2023-12-31] MEDS: diphenhydrAMINE 50MG/ML VIAL 50 MG IV (10:29)
[2023-12-31] MEDS: MIDAZOLAM HCL 1MG/1ML 5ML VIAL 1 MG IV (10:52)
[2023-12-31] MEDS: FENTANYL 100MCG/2ML VIAL 50 MCG IV ×4 (10:52→12:17)
[2023-12-31] MEDS: MIDAZOLAM 2MG/2ML VIAL 1 MG IV ×3 (11:24→12:07)
[2023-12-31] MEDS: PRASUGREL 10MG TAB 60 MG PO (11:44)
--- NOTE | 2023-12-31 13:27 | PC.NURSE ---
Pt arrived to the floor at this time via stretcher
--- NOTE | 2023-12-31 13:27 | HMH.PHAINT1 ---
Pharmacy Intervention Comments: HOME MEDICATION LIST VERIFIED VIA OUTSIDE PHARMACY
[2023-12-31] MEDS: 0.9 % SODIUM CHLORIDE 1000ML 1,000 ML 100 ML IV (15:12)
[2023-12-31] MEDS: IOPAMIDOL-370 (76%);100ML BOTTLE 405 ML IV (15:14)
[2023-12-31] MEDS: ACETAMINOPHEN 325MG TAB 650 MG PO (15:30)
[2023-12-31] MEDS: NICOTINE 14MG/24HRS PATCH 14 MG TD (15:31)
--- NOTE | 2023-12-31 16:19 | PC.NURSE ---
patient is alert and oriented x4, VSS, RA. Radial band removed at 1600, no drainage noted, site dressed with gauze and tegaderm. Pt complained of a headache, treated per MAR. Patient is independent and ambulating to the bathroom as needed. Call light in reach.
[2023-12-31 17:10] LABS: CATHL Activated Clotting Time 244 SEC (74-125)
[2023-12-31 17:11] LABS: CATHL Activated Clotting Time > 400 SEC (74-125)
[2023-12-31 17:12] LABS: CATHL Activated Clotting Time > 400 SEC (74-125)
--- NOTE | 2023-12-31 17:16 | P.HP_ITS ---
History of Present Illness *Admission Date: 12/31/23 *Reason for visit:: IV fluids *History of present illness: Mr. Duron is a 43-year-old male patient who has been followed by cardiology due to chest discomfort, shortness of breath, and weakness. He was seen in the office of cardiology on 12/12/2023 at which time he was noted to have an abnormal EKG, dyspnea on exertion, coronary artery calcification, and angina. Thus because of the abnormal findings on the diagnostic imaging the CCTA?CAC cardiac cath was planned. Cardiac cath revealed the following: INDICATION Coronary artery disease, Abnormal CCTA, Angina pectoris IMPRESSION Chronically occluded proximal LAD as described above Successful stenting of the proximal LAD extending the first diagonal artery severe disease reduced to 0% with 1 drug-eluting stent Attempted yet unsuccessful percutaneous revascularization of chronically occluded LAD Successful stenting of the ostial proximal and mid dominant right coronary severe disease reduced to 0% with 4 contiguous drug-eluting stents Preserved ejection fraction with regional wall motion abnormality involve the anterior wall Elevated LVEDP PLAN 1. Effient 10 mg daily plus aspirin 81 mg daily 2. LDL less than 55 to be achieved with high intensity statin 3. Avoidance of tobacco products 4. Maximize beta-blockers and antianginals 5. In 2 weeks patient be brought back to the [facility] will undergo groin access with attempts to revascularize the chronically occluded LAD. If this is unsuccessful patient will be referred for single-vessel ALVAREZ to LAD in the next couple of months 6. Cardiac rehabilitation after the LAD is opened 7. Sleep study recommended if not already diagnosed with sleep apnea Patient was then admitted for monitoring of renal function and IV fluids. [facility] Disclaimer: The information contained in this section may have been updated after the patient was seen, as this information can be updated by other users. Medical History [place] coronary artery calcium score between 200 and 399 Coronary artery disease Anginal equivalent Abnormal findings on diagnostic imaging of heart and coronary circulation History of hyperlipidemia History of hypertension Coronary artery calcification Chest pain Dyspnea on exertion Abnormal ECG Surgical History (Updated 12/31/23 @ 17:41 by Jazmin Lott APRN) History of back surgery History of right knee surgery Family History Grandmother Heart attack Grandfather Stroke Other Family history of breast cancer Social History (Updated 12/31/23 @ 13:53 by Kalina Simpson RN) Smoking Status: Current every day smoker tobacco type: cigarettes packs per day: 1 second hand exposure: Yes alcohol intake: never substance use type: other current occupational status: employed Travel in the last 8 weeks: None household members: spouse housing: house 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 current occupational exposures/hazards: No caffeine: Yes Review of Systems Constitutional Constitutional: Denies fever(s), Denies frequent falls, Reports headache(s) and Denies lethargy Eyes Eyes: Denies change in vision ENT Ears, Nose, Mouth, and Throat: Denies disequilibrium, Denies dizziness, Denies otalgia, Reports headache(s) and Denies sore throat *Cardiovascular Cardiovascular: Reports chest pain, Reports dyspnea and Reports palpitations *Respiratory Respiratory: Denies chest congestion, Denies cough and Reports dyspnea *Gastrointestinal Gastrointestinal: Denies abdominal pain, Denies change in stool character, Denies heartburn, Denies loose stools, Denies nausea and Denies vomiting *Genitourinary Genitourinary: Denies difficulty urinating *Musculoskeletal Musculoskeletal: Reports arthralgias (Knees and ankles) *Neurologic Neurologic: Denies confusion, Denies convulsions, Denies disequilibrium, Denies dizziness, Denies frequent falls, Reports headache(s) and Denies memory loss Psychiatric Psychiatric: Denies confusion and Denies memory loss Endocrine Endocrine: Reports palpitations Meds Home Medications and Allergies Home Medications Medication Instructions Recorded Confirmed Type aspirin 81 mg tablet,delayed 81 mg PO DAILY #30 tabs 11/21/23 12/31/23 Rx release (Adult Aspirin Regimen) epinephrine 0.3 mg/0.3 mL 0.3 ml SQ ONCE PRN anaphalaxys 11/21/23 12/31/23 History injection, auto-injector metoprolol succinate 25 mg 25 mg PO DAILY #30 tabs 11/21/23 12/31/23 Rx tablet,extended release 24 hr atorvastatin 80 mg tablet (Lipitor) 80 mg PO DAILY #90 tabs 12/12/23 12/31/23 Rx prasugrel 10 mg tablet 10 mg PO DAILY 12/31/23 12/31/23 History New Prescriptions to Start Prescriptions: Allergies Allergy/AdvReac Type Severity Reaction Status Date / Time venom-wasp Allergy Intermediate Hives Verified 12/31/23 08:35 Exam Data for Last 24 hours Vital signs and Labs for Last 24 Hours: Temp Pulse Resp BP Pulse Ox O2 Del Method 97.9 F 67 14 117/64 98 Room Air 12/31/23 13:30 12/31/23 16:45 12/31/23 16:45 12/31/23 16:45 12/31/23 16:45 12/31/23 16:45 Laboratory Results - last 24 hr 12/31/23 08:30: WBC 11.4 H, RBC 5.47, Hgb 16.0, Hct 48.9, MCV 89.3, MCH 29.2, MCHC 32.7, RDW 13.6, Plt Count 293, MPV 8.1, Neut % (Auto) 61.1, Lymph % (Auto) 28.0, [place] % (Auto) 6.7, Eos % (Auto) 2.8, Baso % (Auto) 1.3, Neut # (Auto) 6.9, Lymph # (Auto) 3.2, [place] # (Auto) 0.8, Eos # (Auto) 0.3, Baso # (Auto) 0.2, Sodium 139, Potassium 4.1, Chloride 107, Carbon Dioxide 30, Anion Gap 6.1, BUN 13, Creatinine 0.70, Estimated Creat Clear 266, Estimated GFR 124, Est GFR ( Amer) 150, Glucose 124 H, Calcium 9.3 12/31/23 10:59: Activated Clotting Time > 400 H* 12/31/23 11:42: Activated Clotting Time > 400 H* 12/31/23 12:06: Activated Clotting Time 244 H* D I & O for Last 24 hours: Intake & Output 12/29/23 12/30/23 12/31/23 01/01/24 11:59 11:59 11:59 11:59 Weight 299 lb Constitutional Constitutional: no acute distress Comments: Sitting up in the bed eating dinner. He appears very comfortable. *Routine HEENT Exam Head: Present normocephalic and atraumatic Eye: Present PERRL; Absent conjunctival icterus, scleral injection or conjunctivae pink ENT: Present mucous membranes moist, oropharynx clear and dentition normal *Routine Neck Exam Neck: Present supple and full ROM; Absent carotid bruit, lymphadenopathy or thyromegaly Comments: Bearded *Routine Respiratory Exam Respiratory: Present CTA bilaterally (Anteriorly and posteriorly) *Routine Cardiovascular Exam Cardiovascular: Present RRR *Routine Abdominal Exam Abdominal: Present soft and normoactive bowel sounds; Absent tenderness or distended *Routine Rectal Exam Rectal:: deferred *Routine Genitalia Exam Genitalia:: deferred *Routine Extremities Exam Extremities: Present edema (Trace bilateral lower extremities) *Routine Neurological Exam Neurological: Present alert and oriented X3 Assessment and Plan *Assessment and plan (1) Stented coronary artery: Status: Acute Category: Surgical Code(s): Z95.5 - Presence of coronary angioplasty implant and graft (2) Dyspnea on exertion: Status: Acute Category: Medical Code(s): R06.09 - Other forms of dyspnea (3) Coronary artery disease: Status: Acute Category: Medical Code(s): I25.10 - Atherosclerotic heart disease of [place] coronary artery without angina pectoris (4) Abnormal findings on diagnostic imaging of heart and coronary circulation: Status: Acute Category: Medical Code(s): R93.1 - Abnormal findings on diagnostic imaging of heart and coronary circulation Plan Admitted for renal protection with IV fluids after contrast with multiple stent placements. Will repeat labs in the a.m. Meds as per cardiology.
--- NOTE | 2023-12-31 19:53 | PC.NURSE ---
patient ambulating in farmer 10+ laps now. denies CP or SOA and states he feels much better . right radial site dsg c/d/i.
[2023-12-31] MEDS: ATORVASTATIN 40MG TABLET 40 MG PO (20:25)
[2024-01-01] VITALS: BP 108/69; PULSE 86; PULSE 90; RESP 15; TEMP 37; O2SAT 96
[2024-01-01 04:00] VITALS: BP 129/69; PULSE 73; PULSE 80; RESP 18; TEMP 36.6; O2SAT 98; BMI 39.8
[2024-01-01] MEDS: 0.9 % SODIUM CHLORIDE 1000ML 1,000 ML 100 ML IV (06:06)
[2024-01-01 07:25] VITALS: BP 121/55; PULSE 78; RESP 20; TEMP 36.5; O2SAT 97
[2024-01-01 08:00] VITALS: PULSE 70
[2024-01-01 08:22] LABS: Chloride 110 mmol/L (98-107); Potassium 4.3 mmoL/L (3.5-5.1); Sodium 139 mmol/L (136-145)
[2024-01-01 08:25] LABS: Anion Gap 5.3 mEq/L (5-15); Blood Urea Nitrogen 9 mg/dl (9-20); Carbon Dioxide 28 mmol/L (22.0-30.0); Creatinine Clearance Estimated 268 mL/min (50-200); Estimated Glomerular Filt Rate 124 ml/min (>60); GFR (African American) 150 ML/MIN (>60)
[2024-01-01 08:26] LABS: Glucose 118 mg/dl (74-100)
--- NOTE | 2024-01-01 08:32 | EXP.ACUTE.PN ---
Subjective *Date: 01/01/24 *Time: 08:32 Interval history: Patient is feeling well this am. He denies any pain and has been up walking in the hallway. He is anxious to go home. Medical Exam Vital signs and Labs for Last 24 Hours: Vital Signs Temp Pulse Pulse Resp BP Pulse Ox O2 Del Method 01/01/24 07:25 97.7 F 78 20 121/55 L 97 Room Air 01/01/24 06:27 Room Air 01/01/24 04:35 Room Air 01/01/24 04:00 80 01/01/24 04:00 97.8 F 73 18 129/69 98 Room Air 01/01/24 03:00 Room Air 01/01/24 01:00 Room Air 01/01/24 00:00 90 01/01/24 00:00 98.6 F 86 15 108/69 L 96 Room Air 12/31/23 23:00 Room Air 12/31/23 21:00 Room Air 12/31/23 20:00 90 12/31/23 20:00 Room Air 12/31/23 19:41 97.7 F 91 H 15 122/76 98 Room Air 12/31/23 18:45 72 14 113/83 98 Room Air 12/31/23 18:17 Room Air 12/31/23 17:45 98.2 F 74 15 117/76 98 Room Air 12/31/23 16:45 67 14 117/64 98 Room Air 12/31/23 16:03 Room Air 12/31/23 16:00 98 Room Air 12/31/23 16:00 70 12/31/23 16:00 72 14 124/68 98 Room Air 12/31/23 15:45 72 14 130/76 97 Room Air 12/31/23 15:15 79 14 130/76 98 Room Air 12/31/23 14:48 Room Air 12/31/23 14:45 75 16 127/67 98 Room Air 12/31/23 14:15 74 14 125/79 98 Room Air 12/31/23 13:45 72 14 144/59 H 98 Room Air 12/31/23 13:30 97.9 F 72 16 130/78 97 Room Air 12/31/23 13:30 70 12/31/23 13:15 72 17 151/91 H 97 12/31/23 13:00 73 17 132/78 99 04/09/24 12:45 74 19 151/82 H 97 12/31/23 12:40 74 19 143/75 H 96 12/31/23 12:35 67 19 137/77 98 12/31/23 12:34 73 12/31/23 12:30 67 17 140/91 H 95 Room Air Intake and Output 12/31/23 01/01/24 01/01/24 19:59 03:59 11:59 Intake Total 240 / 240 0 / 240 Output Total 0 / 0 0 / 0 Balance 240 / 240 0 / 240 Intake: Intake, Oral Amount 240 / 240 0 / 240 Output: Output, Urine Amount 0 / 0 0 / 0 Other: Number of Unmeasured Voids 1 1 Weight 300 lb 4.8 oz Patient Weight 01/01/24 11:59 Weight 300 lb 4.8 oz Laboratory Results - last 24 hr 12/31/23 08:30: WBC 11.4 H, RBC 5.47, Hgb 16.0, Hct 48.9, MCV 89.3, MCH 29.2, MCHC 32.7, RDW 13.6, Plt Count 293, MPV 8.1, Neut % (Auto) 61.1, Lymph % (Auto) 28.0, [place] % (Auto) 6.7, Eos % (Auto) 2.8, Baso % (Auto) 1.3, Neut # (Auto) 6.9, Lymph # (Auto) 3.2, [place] # (Auto) 0.8, Eos # (Auto) 0.3, Baso # (Auto) 0.2, Sodium 139, Potassium 4.1, Chloride 107, Carbon Dioxide 30, Anion Gap 6.1, BUN 13, Creatinine 0.70, Estimated Creat Clear 266, Estimated GFR 124, Est GFR ( Amer) 150, Glucose 124 H, Calcium 9.3 12/31/23 10:59: Activated Clotting Time > 400 H* 12/31/23 11:42: Activated Clotting Time > 400 H* 12/31/23 12:06: Activated Clotting Time 244 H* D 01/01/24 08:05: Sodium 139, Potassium 4.3, Chloride 110 H I & O for Labs for Last 24 Hours: Intake & Output 12/29/23 12/30/23 12/31/23 01/01/24 11:59 11:59 11:59 11:59 Intake Total 240 / 240 Output Total 0 / 0 Balance 240 / 240 Weight 299 lb 300 lb 4.8 oz Constitutional: Present no acute distress Respiratory: Present CTA bilaterally Cardiac: Present Reg Rate and Rhythm GI: Present soft; Absent tenderness or guarding Extremities: Absent edema Skin: Present intact Neuro: Present alert, awake and oriented x 3 Assessment and Plan *Assessment and plan (1) Stented coronary artery: Status: Acute Category: Surgical Code(s): Z95.5 - Presence of coronary angioplasty implant and graft (2) Dyspnea on exertion: Status: Acute Category: Medical Code(s): R06.09 - Other forms of dyspnea (3) Coronary artery disease: Status: Acute Category: Medical Code(s): I25.10 - Atherosclerotic heart disease of [place] coronary artery without angina pectoris (4) Abnormal findings on diagnostic imaging of heart and coronary circulation: Status: Acute Category: Medical Code(s): R93.1 - Abnormal findings on diagnostic imaging of heart and coronary circulation Plan Still awaiting renal function results. If normal, patient can be discharged.
[2024-01-01] MEDS: PRASUGREL 10MG TAB 10 MG PO (08:34)
[2024-01-01] MEDS: ASPIRIN EC 81MG TABLET 81 MG PO (08:34)
[2024-01-01 11:20] VITALS: BP 119/71; PULSE 72; RESP 20; TEMP 36.6; O2SAT 97
[2024-01-01 11:27] LABS: Hemoglobin A1C 6.1 % (4.0-6.0)
--- NOTE | 2024-01-01 11:29 | EXP.CARD.CON ---
History of Present Illness History of Present Illness Consult date: 01/01/24 Requesting physician: Jovan Doss Consult reason: known to you Chief complaint: R radial tenderness, s/p [facility] [place] History of present illness: This is a 43-year-old white gentleman who presents admitted to the hospital following left cardiac catheterization due to the extensive coronary stenting he underwent yesterday. He denies any chest pain or pressure. He denies any shortness of breath or edema. He denies any fever, chills, nausea, vomiting, diarrhea, PND orthopnea. The patient does have some mild tenderness noted to the right radial site but he states that this is much better than it was yesterday. He states that he is ready to be discharged home. Left cardiac catheterization shows: Chronically occluded proximal LAD as described above Successful stenting of the proximal LAD extending the first diagonal artery severe disease reduced to 0% with 1 drug-eluting stent Attempted yet unsuccessful percutaneous revascularization of chronically occluded LAD Successful stenting of the ostial proximal and mid dominant right coronary severe disease reduced to 0% with 4 contiguous drug-eluting stents Preserved ejection fraction with regional wall motion abnormality involve the anterior wall Elevated LVEDP PLAN 1. Effient 10 mg daily plus aspirin 81 mg daily 2. LDL less than 55 to be achieved with high intensity statin 3. Avoidance of tobacco products 4. Maximize beta-blockers and antianginals 5. In 2 weeks patient be brought back to the [facility] will undergo groin access with attempts to revascularize the chronically occluded LAD. If this is unsuccessful patient will be referred for single-vessel ALVAREZ to LAD in the next couple of months 6. Cardiac rehabilitation after the LAD is opened 7. Sleep study recommended if not already diagnosed with sleep apnea [facility] Disclaimer: The information contained in this section may have been updated after the patient was seen, as this information can be updated by other users. Medical History (Updated 01/01/24 @ 11:33 by Linnea Sahni APRN) Elevated left ventricular end-diastolic pressure (LVEDP) Hyperglycemia [place] coronary artery calcium score between 200 and 399 Coronary artery disease Anginal equivalent Abnormal findings on diagnostic imaging of heart and coronary circulation History of hyperlipidemia History of hypertension Coronary artery calcification Chest pain Dyspnea on exertion Abnormal ECG Surgical History (Updated 01/01/24 @ 11:32 by Linnea Sahni APRN) Stented coronary artery History of back surgery History of right knee surgery Family History Grandmother Heart attack Grandfather Stroke Other Family history of breast cancer Social History (Updated 12/31/23 @ 13:53 by Kalina Simpson RN) Smoking Status: Current every day smoker tobacco type: cigarettes packs per day: 1 second hand exposure: Yes alcohol intake: never substance use type: other current occupational status: employed Travel in the last 8 weeks: None household members: spouse housing: house 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 current occupational exposures/hazards: No caffeine: Yes Review of Systems Review of Systems Review of systems:: pertinent systems reviewed and negative unless documented below Constitutional Constitutional: Denies frequent falls and Reports headache(s) Eyes Eyes: Reports system reviewed and no additional complaints, except as documented ENT Ears, Nose, Mouth, and Throat: Denies disequilibrium, Denies dizziness and Reports headache(s) *Cardiovascular Cardiovascular: Reports system reviewed and no additional complaints, except as documented *Respiratory Respiratory: Reports system reviewed and no additional complaints, except as documented *Gastrointestinal Gastrointestinal: Reports system reviewed and no additional complaints, except as documented *Genitourinary Genitourinary: Reports system reviewed and no additional complaints, except as documented *Musculoskeletal Musculoskeletal: Reports system reviewed and no additional complaints, except as documented Comments: Right radial tenderness from Integumentary/Breasts Skin/Breast: Reports system reviewed and no additional complaints, except as documented *Neurologic Neurologic: Denies confusion, Denies convulsions, Denies disequilibrium, Denies dizziness, Denies frequent falls, Reports headache(s) and Denies memory loss Psychiatric Psychiatric: Denies confusion and Denies memory loss Endocrine Endocrine: Reports system reviewed and no additional complaints, except as documented Hematologic/Lymphatic Hematologic/Lymphatic: Reports system reviewed and no additional complaints, except as documented Allergic/Immunologic Allergic/Immunologic: Reports system reviewed and no additional complaints, except as documented Exam Data for Last 24 hours Vital signs and Labs for Last 24 Hours: Temp Pulse Resp BP Pulse Ox O2 Del Method 97.9 F 72 20 119/71 97 Room Air 01/01/24 11:20 01/01/24 11:20 01/01/24 11:20 01/01/24 11:20 01/01/24 11:20 01/01/24 11:20 Laboratory Results - last 24 hr 12/31/23 10:59: Activated Clotting Time > 400 H* 12/31/23 11:42: Activated Clotting Time > 400 H* 12/31/23 12:06: Activated Clotting Time 244 H* D 01/01/24 08:05: Sodium 139, Potassium 4.3, Chloride 110 H, Carbon Dioxide 28, Anion Gap 5.3, BUN 9 D, Creatinine 0.70, Estimated Creat Clear 268, Estimated GFR 124, Est GFR ( Amer) 150, Glucose 118 H, Hemoglobin A1c 6.1 H, Calcium 9.0 I & O for Last 24 hours: Intake & Output 12/29/23 12/30/23 12/31/23 01/01/24 23:59 23:59 23:59 23:59 Intake Total 240 / 240 Output Total 0 / 0 0 / 0 Balance 0 / 240 240 / 240 Weight 299 lb 300 lb 4.8 oz Constitutional Constitutional: no acute distress and obese *Routine HEENT Exam Head: Present normocephalic and atraumatic ENT: Present mucous membranes moist *Routine Neck Exam Neck: Present supple, full ROM and normal carotid upstroke; Absent JVD, carotid bruit or lymphadenopathy *Routine Respiratory Exam Respiratory: Present CTA bilaterally, normal respiratory effort, able to speak in complete sentences and symmetric chest movement *Routine Cardiovascular Exam Cardiovascular: Present RRR, Normal S1 and Normal S2; Absent murmur or gallop *Routine Abdominal Exam Abdominal: Present soft and normoactive bowel sounds; Absent tenderness, distended or organomegaly *Routine Extremities Exam Extremities: Present full ROM, pulses intact and normal capillary refill; Absent cyanosis, clubbing or edema *Routine Skin Exam Skin: Present intact and warm; Absent erythema *Routine Neurological Exam Neurological: Present alert, oriented X3 and CN II-XII intact; Absent sensory deficit or motor deficit Routine Psychiatric Exam Psychiatric: Present normal affect Meds Home Medications and Allergies Home Medications Medication Instructions Recorded Confirmed Type aspirin 81 mg tablet,delayed 81 mg PO DAILY #30 tabs 11/21/23 12/31/23 Rx release (Adult Aspirin Regimen) epinephrine 0.3 mg/0.3 mL 0.3 ml SQ ONCE PRN anaphalaxys 11/21/23 12/31/23 History injection, auto-injector metoprolol succinate 25 mg 25 mg PO DAILY #30 tabs 11/21/23 12/31/23 Rx tablet,extended release 24 hr atorvastatin 80 mg tablet (Lipitor) 80 mg PO DAILY #90 tabs 12/12/23 12/31/23 Rx prasugrel 10 mg tablet 10 mg PO DAILY 12/31/23 12/31/23 History New Prescriptions to Start Prescriptions: Allergies Allergy/AdvReac Type Severity Reaction Status Date / Time venom-wasp Allergy Intermediate Hives Verified 12/31/23 08:35 Assessment and Plan *Assessment and plan (1) Coronary artery disease: Status: Acute Qualifiers: Coronary Disease-Associated Artery/Lesion type: [place] artery [place] vs. transplanted heart: [place] heart Associated angina: without angina Qualified Code(s): I25.10 - Atherosclerotic heart disease of [place] coronary artery without angina pectoris Category: Medical Code(s): I25.10 - Atherosclerotic heart disease of [place] coronary artery without angina pectoris (2) HLD (hyperlipidemia): Status: Acute Qualifiers: Hyperlipidemia type: mixed hyperlipidemia Qualified Code(s): E78.2 - Mixed hyperlipidemia Category: Medical Code(s): E78.5 - Hyperlipidemia, unspecified (3) Stented coronary artery: Status: Acute Category: Surgical Code(s): Z95.5 - Presence of coronary angioplasty implant and graft (4) Hyperglycemia: Status: Acute Category: Medical Code(s): R73.9 - Hyperglycemia, unspecified (5) Elevated left ventricular end-diastolic pressure (LVEDP): Status: Acute Category: Medical Code(s): R94.30 - Abnormal result of cardiovascular function study, unspecified Plan Plan: 1. The patient presented to the hospital yesterday and underwent left cardiac catheterization. He did have successful stenting of the proximal LAD extending into the first diagonal artery with 1 drug-eluting stent. Attempted yet unsuccessful percutaneous revascularization of the chronically occluded LAD. He did have successful stenting to the ostial proximal and mid dominant right coronary artery with 4 contiguous drug-eluting stents. The patient does have an elevated LVEDP. 2. The patient will be on Effient and aspirin for dual antiplatelet therapy. I had a long discussion with the patient about dual antiplatelet therapy. The patient verbalizes understanding. 3. His blood pressure is well-controlled. 4. His LDL goal is less than 55. His LDL is 189 in October 2023. He has been started on an high intensity statin. 5. The patient has been hyperglycemic since he has been hospitalized. Will add on a hemoglobin A1c. If his hemoglobin A1c is greater than 6% then Dr. Pina would like for the patient to be started on metformin. We can address this on an outpatient basis once those labs are received. 6. The patient did have an elevated LVEDP. He will need to be set up for home sleep study on an outpatient basis. 7. The patient does have a persistent occluded LAD. The patient will be brought back to the [facility]osc[facility] in 2 weeks to undergo left cardiac catheterization with right groin access to attempt to revascularize the chronically occluded LAD. If revascularization is unsuccessful with a groin approach then the patient will be referred for single-vessel ALVAREZ to the LAD in the next few months. The patient has verbalized understanding. 8. The patient is stable for discharge home today from a cardiac standpoint. He will need to follow-up in cardiology clinic next week on an outpatient basis to be set up for his staged LAD stenting, home sleep study and consideration of starting diabetic medications depending on his hemoglobin A1c. 9. The patient will need to be discharged on the following cardiac medications: Aspirin 81 mg daily, Effient 10 mg daily, atorvastatin 80 mg p.o. nightly, and metoprolol succinate 25 mg p.o. daily. Thank you for the opportunity to help participate in the care of this patient. All recommendations and orders are per Dr. Gomez.
[2024-01-01 12:00] VITALS: PULSE 70
--- NOTE | 2024-01-02 14:02 | CARE MANAGER ---
Called and spoke with patient regarding recent discharge. Patient stated that he is doing well, has started effient that was prescribed at discharge. Aware of scheduled f/u appts. No concerns at time of call.
--- NOTE | 2024-01-06 16:43 | P.DS_ITS ---
General Admission date:: 12/31/23 Discharge date: 01/01/24 HPI HPI HPI: Mr. Duron is a 43-year-old male patient who has been followed by cardiology due to chest discomfort, shortness of breath, and weakness. He was seen in the office of cardiology on 12/12/2023 at which time he was noted to have an abnormal EKG, dyspnea on exertion, coronary artery calcification, and angina. Thus because of the abnormal findings on the diagnostic imaging the CCTA?CAC cardiac cath was planned. Cardiac cath revealed the following: INDICATION Coronary artery disease, Abnormal CCTA, Angina pectoris IMPRESSION Chronically occluded proximal LAD as described above Successful stenting of the proximal LAD extending the first diagonal artery severe disease reduced to 0% with 1 drug-eluting stent Attempted yet unsuccessful percutaneous revascularization of chronically occluded LAD Successful stenting of the ostial proximal and mid dominant right coronary severe disease reduced to 0% with 4 contiguous drug-eluting stents Preserved ejection fraction with regional wall motion abnormality involve the anterior wall Elevated LVEDP PLAN 1. Effient 10 mg daily plus aspirin 81 mg daily 2. LDL less than 55 to be achieved with high intensity statin 3. Avoidance of tobacco products 4. Maximize beta-blockers and antianginals 5. In 2 weeks patient be brought back to the [facility] will undergo groin access with attempts to revascularize the chronically occluded LAD. If this is unsuccessful patient will be referred for single-vessel ALVAREZ to LAD in the next couple of months 6. Cardiac rehabilitation after the LAD is opened 7. Sleep study recommended if not already diagnosed with sleep apnea Patient was then admitted for monitoring of renal function and IV fluids. Hospital Course Hospital Course Hospital Course: On 410 patient was feeling well. He has been walking in the hallways and was anxious to go home. A1c noted to be 6.1 Cardiology did follow-up on this date. With the following plan as documented: Plan Plan: 1. The patient presented to the hospital yesterday and underwent left cardiac catheterization. He did have successful stenting of the proximal LAD extending into the first diagonal artery with 1 drug-eluting stent. Attempted yet unsuccessful percutaneous revascularization of the chronically occluded LAD. He did have successful stenting to the ostial proximal and mid dominant right coronary artery with 4 contiguous drug-eluting stents. The patient does have an elevated LVEDP. 2. The patient will be on Effient and aspirin for dual antiplatelet therapy. I had a long discussion with the patient about dual antiplatelet therapy. The patient verbalizes understanding. 3. His blood pressure is well-controlled. 4. His LDL goal is less than 55. His LDL is 189 in October 2023. He has been started on an high intensity statin. 5. The patient has been hyperglycemic since he has been hospitalized. Will add on a hemoglobin A1c. If his hemoglobin A1c is greater than 6% then Dr. Pina would like for the patient to be started on metformin. We can address this on an outpatient basis once those labs are received. 6. The patient did have an elevated LVEDP. He will need to be set up for home sleep study on an outpatient basis. 7. The patient does have a persistent occluded LAD. The patient will be brought back to the [facility] in 2 weeks to undergo left cardiac catheterization with right groin access to attempt to revascularize the chronically occluded LAD. If revascularization is unsuccessful with a groin approach then the patient will be referred for single-vessel ALVAREZ to the LAD in the next few months. The patient has verbalized understanding. 8. The patient is stable for discharge home today from a cardiac standpoint. He will need to follow-up in cardiology clinic next week on an outpatient basis to be set up for his staged LAD stenting, home sleep study and consideration of starting diabetic medications depending on his hemoglobin A1c. 9. The patient will need to be discharged on the following cardiac medications: Aspirin 81 mg daily, Effient 10 mg daily, atorvastatin 80 mg p.o. nightly, and metoprolol succinate 25 mg p.o. daily. Exam Data for Last 24 hours Vital signs and Labs for Last 24 Hours: Temp Pulse Resp BP Pulse Ox O2 Del Method 97.9 F 70 20 119/71 97 Room Air 01/01/24 11:20 01/01/24 12:00 01/01/24 11:20 01/01/24 11:20 01/01/24 11:20 01/01/24 13:00 Narrative: Medical Exam Vital signs and Labs for Last 24 Hours: Vital Signs Temp Pulse Pulse Resp BP Pulse Ox O2 Del Method 01/01/24 07:25 97.7 F 78 20 121/55 L 97 Room Air 01/01/24 06:27 Room Air 01/01/24 04:35 Room Air 01/01/24 04:00 80 01/01/24 04:00 97.8 F 73 18 129/69 98 Room Air 01/01/24 03:00 Room Air 01/01/24 01:00 Room Air 01/01/24 00:00 90 01/01/24 00:00 98.6 F 86 15 108/69 L 96 Room Air 12/31/23 23:00 Room Air 12/31/23 21:00 Room Air 12/31/23 20:00 90 12/31/23 20:00 Room Air 12/31/23 19:41 97.7 F 91 H 15 122/76 98 Room Air 12/31/23 18:45 72 14 113/83 98 Room Air 12/31/23 18:17 Room Air 12/31/23 17:45 98.2 F 74 15 117/76 98 Room Air 12/31/23 16:45 67 14 117/64 98 Room Air 12/31/23 16:03 Room Air 12/31/23 16:00 98 Room Air 12/31/23 16:00 70 12/31/23 16:00 72 14 124/68 98 Room Air 12/31/23 15:45 72 14 130/76 97 Room Air 12/31/23 15:15 79 14 130/76 98 Room Air 12/31/23 14:48 Room Air 12/31/23 14:45 75 16 127/67 98 Room Air 12/31/23 14:15 74 14 125/79 98 Room Air 12/31/23 13:45 72 14 144/59 H 98 Room Air 12/31/23 13:30 97.9 F 72 16 130/78 97 Room Air 12/31/23 13:30 70 12/31/23 13:15 72 17 151/91 H 97 12/31/23 13:00 73 17 132/78 99 12/31/23 12:45 74 19 151/82 H 97 12/31/23 12:40 74 19 143/75 H 96 12/31/23 12:35 67 19 137/77 98 12/31/23 12:34 73 12/31/23 12:30 67 17 140/91 H 95 Room Air Intake and Output 12/31/23 01/01/24 01/01/24 19:59 03:59 11:59 Intake Total 240 / 240 0 / 240 Output Total 0 / 0 0 / 0 Balance 240 / 240 0 / 240 Intake: Intake, Oral Amount 240 / 240 0 / 240 Output: Output, Urine Amount 0 / 0 0 / 0 Other: Number of Unmeasured Voids 1 1 Weight 300 lb 4.8 oz Patient Weight 01/01/24 11:59 Weight 300 lb 4.8 oz Laboratory Results - last 24 hr 12/31/23 08:30: WBC 11.4 H, RBC 5.47, Hgb 16.0, Hct 48.9, MCV 89.3, MCH 29.2, MCHC 32.7, RDW 13.6, Plt Count 293, MPV 8.1, Neut % (Auto) 61.1, Lymph % (Auto) 28.0, Harvey % (Auto) 6.7, Eos % (Auto) 2.8, Baso % (Auto) 1.3, Neut # (Auto) 6.9, Lymph # (Auto) 3.2, [place] # (Auto) 0.8, Eos # (Auto) 0.3, Baso # (Auto) 0.2, Sodium 139, Potassium 4.1, Chloride 107, Carbon Dioxide 30, Anion Gap 6.1, BUN 13, Creatinine 0.70, Estimated Creat Clear 266, Estimated GFR 124, Est GFR ( Amer) 150, Glucose 124 H, Calcium 9.3 12/31/23 10:59: Activated Clotting Time > 400 H* 12/31/23 11:42: Activated Clotting Time > 400 H* 12/31/23 12:06: Activated Clotting Time 244 H* D 01/01/24 08:05: Sodium 139, Potassium 4.3, Chloride 110 H I & O for Labs for Last 24 Hours: Intake & Output 12/29/23 12/30/23 12/31/23 01/01/24 11:59 11:59 11:59 11:59 Intake Total 240 / 240 Output Total 0 / 0 Balance 240 / 240 Weight 299 lb 300 lb 4.8 oz Constitutional: Present no acute distress Respiratory: Present CTA bilaterally Cardiac: Present Reg Rate and Rhythm GI: Present soft; Absent tenderness or guarding Extremities: Absent edema Skin: Present intact Neuro: Present alert, awake and oriented x 3 DS: Diagnosis Discharge Diagnosis (1) Coronary artery disease: Status: Acute Code(s): I25.10 - Atherosclerotic heart disease of [place] coronary artery without angina pectoris Qualifiers: Coronary Disease-Associated Artery/Lesion type: [place] artery [place] vs. transplanted heart: [place] heart Associated angina: without angina Qualified Code(s): I25.10 - Atherosclerotic heart disease of [place] coronary [place] without angina pectoris (2) HLD (hyperlipidemia): Status: Acute Code(s): E78.5 - Hyperlipidemia, unspecified Qualifiers: Hyperlipidemia type: mixed hyperlipidemia Qualified Code(s): E78.2 - Mixed hyperlipidemia (3) Stented coronary artery: Status: Acute Code(s): Z95.5 - Presence of coronary angioplasty implant and graft (4) Hyperglycemia: Status: Acute Code(s): R73.9 - Hyperglycemia, unspecified (5) Elevated left ventricular end-diastolic pressure (LVEDP): Status: Inactive Code(s): R94.30 - Abnormal result of cardiovascular function study, unspecified Meds Home Medications and Allergies Home Medications Medication Instructions Recorded Confirmed Type aspirin 81 mg tablet,delayed 81 mg PO DAILY #30 tabs 11/21/23 12/31/23 Rx release (Adult Aspirin Regimen) epinephrine 0.3 mg/0.3 mL 0.3 ml SQ ONCE PRN anaphalaxys 11/21/23 12/31/23 History injection, auto-injector metoprolol succinate 25 mg 25 mg PO DAILY #30 tabs 11/21/23 12/31/23 Rx tablet,extended release 24 hr atorvastatin 80 mg tablet (Lipitor) 80 mg PO DAILY #90 tabs 12/12/23 12/31/23 Rx prasugrel 10 mg tablet 10 mg PO DAILY 30 days #30 tabs 01/01/24 12/31/23 Rx New Prescriptions to Start Prescriptions: Allergies Allergy/AdvReac Type Severity Reaction Status Date / Time venom-wasp Allergy Intermediate Hives Verified 12/31/23 08:35 Discharge Plan Disposition Patient Disposition: Home, Self-Care Condition: Good Follow up Plan Follow up with: Jovan Doss MD [Staff Physician] - 01/16/24 9:45 am (with Renea) Marcell Pina MD [Staff Physician] - 01/07/24 1:15 pm Prescriptions/Medication Reconciliation: Continued epinephrine 0.3 mg/0.3 mL auto-injector 0.3 ml SQ ONCE PRN (Reason: anaphalaxys) aspirin [Adult Aspirin Regimen] 81 mg tablet,delayed release (DR/EC) 81 mg PO DAILY Qty: 30 2RF metoprolol succinate 25 mg tablet extended release 24 hr 25 mg PO DAILY Qty: 30 2RF atorvastatin [Lipitor] 80 mg tablet 80 mg PO DAILY Qty: 90 3RF prasugrel 10 mg tablet 10 mg PO DAILY 30 Days Qty: 30 3RF Rx Instructions: 1 daily Refill 3 Problem Reconciliation Problems Reviewed?: Yes Patient Discharge Instructions ACTIVITY: Continue current activity DIET: low fat, low cholesterol Patient Instructions: Cardiac Catheterization, DI for Coronary Stenting, DI for Surgical Site Infection, DI for Moderate Sedation, DI for Post-Surgical Bleeding Providers Primary Care Provider: Provider,Referral Admit Provider: Jovan oDss Attending Provider: Jovan Doss
== END 2024-01-01 14:14 | disposition home or self-care (01) ==
LOC: 2ND 13:03
PROVIDERS: Internal Medicine; Nurse Practitioner Family; Admitting Provider Family Medicine; Visit Provider Family Medicine
DX: R93.1 Abnormal findings on diagnostic imaging of heart and coronary circulation; I25.118 Atherosclerotic heart disease of native coronary artery with other forms of angina pectoris; I25.84 Coronary atherosclerosis due to calcified coronary lesion; R94.31 Abnormal electrocardiogram [ECG] [EKG]; E78.5 Hyperlipidemia, unspecified; Z95.5 Presence of coronary angioplasty implant and graft; Z79.899 Other long term (current) drug therapy; F17.210 Nicotine dependence, cigarettes, uncomplicated; I10 Essential (primary) hypertension
CPT/HCPCS: 36415; 80048; 83036; 85025; 85347; 92928; 93458; 99152; 99153; C1725; C1769; C1876; C9600; G0378; J1644; Q9967

== ENCOUNTER 2024-01-16 12:51 | Outpatient (CLI) | payer OTHER, SELFPAY ==
[2024-01-16 13:58] VITALS: BMI 40.7
== END 2024-01-16 23:59 | disposition home or self-care (01) ==
LOC: DIETICIAN 12:51
PROVIDERS: PCP Family Medicine; Visit Provider Physician Assistant
DX: R73.03 Prediabetes (principal); I25.10 Atherosclerotic heart disease of native coronary artery without angina pectoris; F17.210 Nicotine dependence, cigarettes, uncomplicated
CPT/HCPCS: 97802

== ENCOUNTER 2024-01-27 12:37 | Observation (INO) | payer OTHER, SELFPAY ==
[2024-01-27] VITALS (31 sets, daily range): BP systolic 109–161; BP diastolic 63–90; PULSE 71–105; RESP 16–20; TEMP 36.4–36.8; O2SAT 95–99; BMI 39.4; BMI 35.6
--- NOTE | 2024-01-27 07:13 | IR_ITS ---
APPROVED REPORT Patient Location: Outpatient Religious Studies Professor: WARNER Jacobson RT (R) PROCEDURES Drug-eluting stent deployment to the ostial proximal mid and distal chronically occluded LAD Drug-eluting stent deployment to the first diagonal artery INDICATION Chronic occlusion of the LAD, Angina pectoris Informed consent was obtained prior to the procedure. COMPLICATIONS NONE Estimated Blood Loss: LESS THAN 10 ML TECHNIQUE 1% lidocaine used anesthetize right groin the right femoral artery was accessed via the Salinger technique and a 6 [place] sheath is placed in the right femoral artery. Therapeutic heparin was administered giving a therapeutic ACT and the EBU 3.75 guide catheter was placed in the left main artery. A run-through wire and multiple Choice PT extra-support wires were used eventually an 014 advantage wire was used to traverse the occlusion in the LAD. A 1.25 mm balloon was deployed inside the stent going into the proximal LAD which open the vessel ostially. An additional 2 mm balloon was then upsized and the ostial proximal mid and distal segment were ballooned with angioplasty. A 2.5 x 38 mm [place] frontier stent was deployed in the proximal LAD and deployed at 20 dianne. An additional 2.5 x 18 mm [place] frontier stent was placed proximal to the for stent yet still overlapping it which extended back into the takeoff of the occluded LAD and this was deployed at 20 dianne. The balloon was advanced and deployed at 20 dianne to mesh the 2 stents. An additional 2.25 x 30 mm [place] frontier stent was then placed distal to the for stent which was placed and then deployed at 14 dianne. The balloon was brought back and deployed at 20 dianne to dilate and mesh the 2 stents. An additional 2 mm x 30 mm [place] frontier stent was placed distal to the 2.25 mm stent yet still overlapping it and deployed at 18 dianne. The balloon was brought back and deployed at 24 dianne to mesh the 2 stents between the 2.25 to 2 mm stent. Excellent angiographic results were obtained. A 2.5 x 12 mm [place] frontier stent was also placed in the mid diagonal artery after wire manipulation seem to cause a defect in the vessel distal to the stent which was placed during the last cardiac catheterization. The stent was deployed at 20 dianne. MARY ANNE-3 flow was present down the diagonal artery before and after the procedure while MARY ANNE 0 flow was present in the LAD at the beginning of the procedure and MARY ANNE-3 flow at the end of the procedure. After achieving excellent angiographic results the apparatus was removed the groin was reprepped closure change sheath was removed hemostasis could not be achieved with Perclose device however the sheath was removed therefore hemostasis was achieved using FemoStop patient was transferred to the postop putting in stable condition IMPRESSION Chronically occluded LAD Successful percutaneous revascularization of a chronically occluded proximal mid and distal LAD 100% occlusion reduced to 0% with 4 contiguous drug-eluting stents Successful stenting of the mid to distal first diagonal artery severe disease reduced to 0% with 1 drug-eluting stent PLAN 1. Continue dual antiplatelet therapy 2. Cardiac rehabilitation 3. Avoidance of tobacco products 4. Risk factor modification 5. Patient received copious contrast and a lot of radiation today. He should be admitted to the hospital due to the complex nature of the procedure and followed overnight. Chemistry panel CBC should be checked in the morning. Electronically signed by : Marcell Pina MD 01/27/2024 13:47:15
[2024-01-27 08:55] LABS: Basophils # 0.1 K/mm3 (0-0.2); Basophils % 0.8 % (0.1-2.0); Eosinophils # 0.3 K/mm3 (0.0-0.4); Hematocrit 44.4 % (42.0-52.0); Hemoglobin 14.9 g/dL (14.1-18.0); Lymphocytes # 2.7 K/mm3 (0.7-4.5); Lymphocytes % 29.1 % (10-50); Mean Corpuscular HGB Conc 33.6 g/dL (31.8-35.4); Mean Corpuscular Hemoglobin 29.2 pg (27.0-31.2); Mean Corpuscular Volume 87.1 fl (80-94); Mean Platelet Volume 7.7 fl (7.4-10.4); Monocytes # 0.6 K/mm3 (0.1-1.0); Monocytes % 6.5 % (1.7-9.3); Neutrophils # 5.7 K/mm3 (1.8-7.8); Neutrophils % 60.7 % (37.0-80.0); Platelet Count 260 K/mm3 (142-424); Red Cell Distribution Width 13.7 % (11.5-17.5); White Blood Count 9.4 K/mm3 (4.8-10.8)
[2024-01-27 09:08] LABS: Anion Gap 12.8 mEq/L (5-15); Blood Urea Nitrogen 15 mg/dl (9-20); Calcium 9.5 mg/dl (8.4-10.2); Carbon Dioxide 26 mmol/L (22.0-30.0); Chloride 106 mmol/L (98-107); Creatinine Clearance Estimated 259 mL/min (50-200); Estimated Glomerular Filt Rate 124 ml/min (>60); GFR (African American) 150 ML/MIN (>60); Glucose 112 mg/dl (74-100); Potassium 3.8 mmoL/L (3.5-5.1); Sodium 141 mmol/L (136-145)
[2024-01-27] MEDS: LIDOCAINE 1% 10ML MDV 20 ML IJ (10:35)
[2024-01-27] MEDS: diphenhydrAMINE 50MG/ML VIAL 50 MG IV (10:35)
[2024-01-27] MEDS: MIDAZOLAM HCL 1MG/1ML 5ML VIAL 1 MG IV (10:36)
[2024-01-27] MEDS: HEPARIN 1,000 UNITS/500ML NS (CATH LAB) 3000 UNIT IV (10:36)
[2024-01-27] MEDS: 0.9 % SODIUM CHLORIDE 500 ML 25 ML IV (10:36)
[2024-01-27] MEDS: FENTANYL 100MCG/2ML VIAL 50 MCG IV (10:36)
[2024-01-27] MEDS: HEPARIN 1,000 UNITS/ML 10ML VIAL (CATH LAB) 10000 UNIT IV (10:52)
--- NOTE | 2024-01-27 12:42 | HMH.PHAINT1 ---
Pharmacy Intervention Comments: HOME MEDICATION LIST VERIFIED USING LIST FROM OUTPATIENT PHARMACY
--- NOTE | 2024-01-27 14:31 | PC.NURSE ---
arrived to floor by stretcher from [facility]
[2024-01-27] MEDS: IOPAMIDOL-370 (76%);100ML BOTTLE 410 ML IV (14:38)
[2024-01-27 14:47] LABS: CATHL Activated Clotting Time 294 SEC (74-125)
[2024-01-27] MEDS: 0.9 % SODIUM CHLORIDE 500 ML 100 ML IV (14:53)
[2024-01-27] MEDS: ATORVASTATIN 40MG TABLET 80 MG PO (20:53)
[2024-01-27] MEDS: NICOTINE 21MG/24HR PATCH 21 MG TD (20:53)
[2024-01-28] VITALS: BP 115/72; PULSE 104; PULSE 86; RESP 18; TEMP 36.8; O2SAT 97
[2024-01-28] MEDS: 0.9 % SODIUM CHLORIDE 500 ML 100 ML IV (01:28)
[2024-01-28 04:00] VITALS: BP 113/64; PULSE 72; PULSE 80; RESP 18; TEMP 36.7; O2SAT 98; BMI 39.2
--- NOTE | 2024-01-28 04:27 | PC.NURSE ---
right groin site with small amt of dried drainage on drsg, bruising noted but no signs of hematoma, pt denies cheat pain. [facility]
[2024-01-28 06:45] LABS: Lymphocytes # 2.1 K/mm3 (0.7-4.5); Lymphocytes % 22.7 % (10-50); Platelet Count 243 K/mm3 (142-424)
[2024-01-28 07:00] LABS: Anion Gap 11.6 mEq/L (5-15); Blood Urea Nitrogen 11 mg/dl (9-20); Calcium 8.5 mg/dl (8.4-10.2); Carbon Dioxide 26 mmol/L (22.0-30.0); Chloride 106 mmol/L (98-107); Creatinine Clearance Estimated 308 mL/min (50-200); Estimated Glomerular Filt Rate 148 ml/min (>60); GFR (African American) 180 ML/MIN (>60); Glucose 125 mg/dl (74-100); Potassium 3.6 mmoL/L (3.5-5.1); Sodium 140 mmol/L (136-145)
[2024-01-28 08:00] VITALS: BP 113/65; PULSE 80; RESP 19; TEMP 36.9; O2SAT 97
[2024-01-28 08:37] LABS: Basophils % 0.5 % (0.1-2.0); Eosinophils # 0.2 K/mm3 (0.0-0.4); Eosinophils % 2.6 % (0.1-12.0); Hematocrit 41.6 % (42.0-52.0); Mean Corpuscular Hemoglobin 28.3 pg (27.0-31.2); Mean Corpuscular Volume 88.5 fl (80-94); Mean Platelet Volume 8.1 fl (7.4-10.4); Monocytes # 0.8 K/mm3 (0.1-1.0); Monocytes % 8.5 % (1.7-9.3); Neutrophils % 65.6 % (37.0-80.0); Red Cell Distribution Width 13.7 % (11.5-17.5); White Blood Count 9.1 K/mm3 (4.8-10.8)
[2024-01-28 08:41] LABS: Hemoglobin 13.3 g/dL (14.1-18.0)
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
--- NOTE | 2024-01-28 09:19 | HMH.PHAINT1 ---
Pharmacy Intervention Comments: DISCHARGE MEDICATION COUNSELING PROVIDED. DISCUSSED THERE WERE NO CHANGES AND PATIENT VERBALIZED NO QUESTIONS AT THIS TIME.
[2024-01-28] MEDS: ASPIRIN EC 81MG TABLET 81 MG PO (09:20)
[2024-01-28] MEDS: PRASUGREL 10MG TAB 10 MG PO (09:20)
[2024-01-28] MEDS: NICOTINE 21MG/24HR PATCH 21 MG TD (09:36)
== END 2024-01-28 09:57 | disposition home or self-care (01) ==
LOC: 2ND 12:38
PROVIDERS: Internal Medicine; Admitting Provider Family Medicine; PCP Family Medicine; Visit Provider Family Medicine
DX: I25.10 Atherosclerotic heart disease of native coronary artery without angina pectoris (principal); I25.82 Chronic total occlusion of coronary artery; F17.210 Nicotine dependence, cigarettes, uncomplicated; I10 Essential (primary) hypertension
CPT/HCPCS: 36415; 80048; 85025; 85347; 92929; 92943; 99152; 99153; C1725; C1760; C1769; C1876; C1894; C9601; C9607; G0378; J1644; Q9967

== ENCOUNTER 2024-01-31 21:54 | Emergency (ER) | payer OTHER, SELFPAY ==
[2024-01-31 21:56] VITALS: BP 129/77; PULSE 81; RESP 16; TEMP 36.6; O2SAT 96; BMI 38.5
[2024-01-31 22:02] VITALS: BP 129/77; PULSE 78; RESP 20; O2SAT 98
[2024-01-31 22:30] VITALS: BP 108/69; PULSE 79; RESP 18; O2SAT 76
[2024-01-31 22:45] VITALS: BP 129/77; PULSE 70; RESP 16; O2SAT 98
--- NOTE | 2024-01-31 23:29 | CT_ITS ---
PROCEDURE INFORMATION: Exam: CTA Abdominal Aorta and Bilateral Lower Extremities (Run-off) With Contrast Exam date and time: 01/31/2024 11:58 PM Age: 43 years old Clinical indication: Pain; Other: Right groin; Additional info: R groin swell post cath, R/O psuedoaneurysm/infxn TECHNIQUE: Imaging protocol: Computed tomographic angiography of the of the abdominal aorta, pelvis and bilateral lower extremities with contrast. 3D rendering (Not supervised by radiologist): MIP and/or 3D reconstructed images were created by the technologist. Radiation optimization: All CT scans at this facility use at least one of these dose optimization techniques: automated exposure control; mA and/or kV adjustment per patient size (includes targeted exams where dose is matched to clinical indication); or iterative reconstruction. Contrast material: ISOVUE; Contrast volume: 120 ml; Contrast route: INTRAVENOUS (IV); COMPARISON: CT ABDOMEN PELVIS W CON 03/02/2023 8:11 PM FINDINGS: Aorta: No aortic aneurysm. No aortic dissection. Celiac trunk and mesenteric arteries: No occlusion or significant stenosis. Renal arteries: No occlusion or significant stenosis. Right iliac arteries: No occlusion or significant stenosis. Right femoral/popliteal arteries: Pseudoaneurysm extending from the anterior aspect of the right common femoral artery that measures 3.5 x 1.2 x 1.2 cm in size. There is no significant hematoma. There is no active extravasation. Right infrapopliteal arteries: No occlusion or significant stenosis. Left iliac arteries: No occlusion or significant stenosis. Left femoral/popliteal arteries: No occlusion or significant stenosis. Left infrapopliteal arteries: No occlusion or significant stenosis. Liver: No mass. Gallbladder and bile ducts: Unremarkable. No calcified stones. No ductal dilation. Pancreas: Unremarkable. No mass. No ductal dilation. Spleen: Normal. No splenomegaly. Adrenal glands: Normal. No mass. Kidneys and ureters: Normal. No mass. Stomach and bowel: Unremarkable. No obstruction. No mucosal thickening. Appendix: No evidence of appendicitis. Urinary bladder: Unremarkable. No mass. Reproductive: Unremarkable as visualized. Intraperitoneal space: Unremarkable. No free air. No significant fluid collection. Lymph nodes: No lymphadenopathy. Bones/joints: No acute fracture. No dislocation. Soft tissues: Unremarkable. IMPRESSION: 1. Pseudoaneurysm extending from the anterior aspect of the right common femoral artery that measures 3.5 x 1.2 x 1.2 cm in size. There is no significant hematoma. There is no active extravasation. 2. The vascular structures are otherwise normal. There is no significant stenosis. There is three-vessel runoff to the bilateral lower extremities.
[2024-01-31 23:33] VITALS: BP 126/65; PULSE 65; RESP 20; O2SAT 99
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
[2024-01-31 23:43] LABS: Basophils # 0.1 K/mm3 (0-0.2); Basophils % 0.9 % (0.1-2.0); Eosinophils # 0.4 K/mm3 (0.0-0.4); Eosinophils % 3.1 % (0.1-12.0); Hematocrit 47.3 % (42.0-52.0); Hemoglobin 15.4 g/dL (14.1-18.0); Lymphocytes # 3.5 K/mm3 (0.7-4.5); Lymphocytes % 27.6 % (10-50); Mean Corpuscular HGB Conc 32.5 g/dL (31.8-35.4); Mean Corpuscular Hemoglobin 28.8 pg (27.0-31.2); Mean Corpuscular Volume 88.7 fl (80-94); Monocytes # 0.6 K/mm3 (0.1-1.0); Monocytes % 5.1 % (1.7-9.3); Neutrophils # 7.9 K/mm3 (1.8-7.8); Neutrophils % 63.3 % (37.0-80.0); Platelet Count 322 K/mm3 (142-424); Red Blood Count 5.33 M/mm3 (4.60-6.20); Red Cell Distribution Width 13.7 % (11.5-17.5); White Blood Count 12.5 K/mm3 (4.8-10.8)
--- NOTE | 2024-01-31 23:51 | PC.NURSE ---
rounded on pt pt voices no needs
[2024-01-31 23:52] LABS: Alanine Aminotransferase 57 U/L (12-78); Albumin Level 4.5 g/dl (3.5-5.0); Albumin/Globulin Ratio 1.3 (1.1-1.8); Alkaline Phosphatase 107 U/L (38-126); Anion Gap 12.8 mEq/L (5-15); Aspartate Amino Transferase 35 U/L (17-59); Bilirubin,Total 0.7 mg/dl (0.2-1.3); Blood Urea Nitrogen 12 mg/dl (9-20); Calcium 9.9 mg/dl (8.4-10.2); Carbon Dioxide 31 mmol/L (22.0-30.0); Chloride 100 mmol/L (98-107); Creatinine Clearance Estimated 221 mL/min (50-200); Estimated Glomerular Filt Rate 107 ml/min (>60); GFR (African American) 129 ML/MIN (>60); Globulin 3.5 g/dL (1.3-3.2); Glucose 85 mg/dl (74-100); Potassium 3.8 mmoL/L (3.5-5.1); Sodium 140 mmol/L (136-145)
[2024-01-31 23:53] LABS: INR 0.96 (0.9-1.1); Prothrombin Time 10.4 seconds (10.1-12.5)
[2024-02-01] MEDS: IOPAMIDOL-370 (76%);100ML BOTTLE 120 ML IV (00:08)
[2024-02-01] MEDS: 0.9 % SODIUM CHLORIDE 50 ML VIAL 100 ML IV (00:08)
[2024-02-01] MEDS: SODIUM CHLORIDE 0.9% 10ML SYR (RAD ONLY) 10 ML IV (00:08)
[2024-02-01 00:30] VITALS: BP 111/63; PULSE 72; RESP 18; O2SAT 97
[2024-02-01 01:00] VITALS: BP 113/65; PULSE 75; RESP 20; O2SAT 97
[2024-02-01 01:30] VITALS: BP 109/61; PULSE 69; RESP 16; O2SAT 97
--- NOTE | 2024-02-01 01:38 | PC.NURSE ---
paging dr eduardo @ this time
--- NOTE | 2024-02-01 01:40 | PC.NURSE ---
on phone with alesha
--- NOTE | 2024-02-01 01:43 | PC.NURSE ---
MD Bill spoke with MD Pina who recommends contacting [facility] for trransfer. Carpenter on phone with [facility] now.
--- NOTE | 2024-02-01 01:57 | PC.NURSE ---
MD Bill on phone with at this time
[2024-02-01 02:00] VITALS: BP 116/74; PULSE 74; RESP 19; O2SAT 98
--- NOTE | 2024-02-01 02:10 | PC.NURSE ---
notified [facility] of pt ready for transport to er
[2024-02-01 02:18] VITALS: BP 113/65; PULSE 75; RESP 18; TEMP 36.6; O2SAT 99
[2024-02-01] MEDS: NICOTINE 21MG/24HR PATCH 21 MG TD (02:29)
[2024-02-01 02:30] VITALS: BP 117/81
== END 2024-02-01 02:18 | disposition short-term general hospital (02) ==
PROVIDERS: Emergency Medicine; Emergency Provider Emergency Medicine; PCP Family Medicine
DX: T81.718A Complication of other artery following a procedure, not elsewhere classified, initial encounter (principal); F17.210 Nicotine dependence, cigarettes, uncomplicated; I11.9 Hypertensive heart disease without heart failure; E78.5 Hyperlipidemia, unspecified; I25.10 Atherosclerotic heart disease of native coronary artery without angina pectoris; Z95.5 Presence of coronary angioplasty implant and graft; I72.4 Aneurysm of artery of lower extremity
CPT/HCPCS: 75635; 80053; 85025; 85610; 99285; Q9967

== ENCOUNTER 2024-02-05 10:25 | Outpatient (CLI) | payer OTHER, SELFPAY ==
--- NOTE | 2024-02-05 10:28 | CA_ITS ---
FINAL REPORT CLINICAL HISTORY: psuedoaneurysm of right groin post thrombin injection at [facility] 02/01/2024. Patient has no complaints no pain COMPARISON: None FINDINGS: LOWER EXTREMITY DUPLEX DOPPLER Color Doppler and duplex Doppler of the right lower extremity was performed. Common femoral artery is patent. There is no evidence of pseudoaneurysm. The hypoechoic mass superficial to the femoral artery likely represents a blood clot. IMPRESSION: Resolved pseudoaneurysm. Probable blood clot superficial to the femoral artery. Reviewed, Interpreted and Dictated by Dionte Haque III, MD Transcribed by Karoline Krueger Authenticated and [facility]
== END 2024-02-05 23:59 | disposition home or self-care (01) ==
LOC: RT 10:26
PROVIDERS: PCP Family Medicine; Visit Provider Nurse Practitioner Family
DX: T81.718A Complication of other artery following a procedure, not elsewhere classified, initial encounter (principal); I72.9 Aneurysm of unspecified site
CPT/HCPCS: 93926

== ENCOUNTER 2024-05-21 09:39 | Outpatient (CLI) | payer OTHER, SELFPAY ==
[2024-05-21 10:49] LABS: Alanine Aminotransferase 52 U/L (12-78); Alkaline Phosphatase 102 U/L (38-126); Aspartate Amino Transferase 34 U/L (17-59); Bilirubin,Direct 0.4 mg/dl (0.0-0.4); Bilirubin,Indirect 0.1 mg/dL (0.0-0.9); Bilirubin,Total 0.5 mg/dl (0.2-1.3); Bilirubin,Unconjugated 0.1 mg/dL (0.0-1.1); Total Protein,Serum 6.8 g/dl (6.3-8.2)
[2024-05-21 10:50] LABS: Chol/HDL Ratio 5.8 (1-3.5); Cholesterol 185 mg/dl (140-200); HDL Cholesterol 32 mg/dl (40-60); Triglycerides 302 mg/dl (30-150); VLDL Cholesterol 60 mg/dL (0-40)
[2024-05-21 11:01] LABS: Direct LDL Cholesterol 103.75 mg/dL (100-129)
== END 2024-05-21 23:59 | disposition home or self-care (01) ==
LOC: LAB 09:39
PROVIDERS: PCP Family Medicine; Visit Provider Nurse Practitioner Family
DX: E78.2 Mixed hyperlipidemia (principal); I25.118 Atherosclerotic heart disease of native coronary artery with other forms of angina pectoris; Z95.5 Presence of coronary angioplasty implant and graft; R73.03 Prediabetes; Z72.0 Tobacco use
CPT/HCPCS: 36415; 80061; 80076

== ENCOUNTER 2024-08-26 13:03 | Outpatient (CLI) | payer OTHER, SELFPAY ==
--- NOTE | 2024-08-26 13:18 | XR_ITS ---
FINAL REPORT CLINICAL HISTORY: right hand pain FINDINGS: RIGHT HAND: 3 views of the right hand were obtained. There is no acute fracture or dislocation. There is a chronic deformity of the fifth metacarpal consistent with a chronic fracture. Mild degenerative changes present. Visualized joint spaces are normally aligned. Soft tissues are unremarkable. IMPRESSION: Chronic deformity of the fifth metacarpal consistent with a chronic fracture. Reviewed, Interpreted and Dictated by Dionte Haque III, MD Transcribed by Lynn Cortez Authenticated and [facility]
== END 2024-08-26 23:59 | disposition home or self-care (01) ==
LOC: RAD 13:04
PROVIDERS: PCP Family Medicine; Visit Provider Physician Assistant
DX: M79.641 Pain in right hand (principal); R20.0 Anesthesia of skin
CPT/HCPCS: 73130

== ENCOUNTER 2025-07-24 18:11 | Observation (INO) | payer OTHER, SELFPAY ==
--- OUTSIDE RECORDS SUMMARY | 2024-02-06 09:30 | XMS_ITS ---
Author Organization [facility] Address [address] [id number] Care Team Providers Care Photoflash Powder Mixer Name Role Phone Vasyl Doss Primary Care Provider Allergies No Known Allergies Results Component Value Reference Range Notes Glycohemoglobin A1c (in hous e) Reviewed date:02/06/2024 02:44:08 PM Interpretation: Performing Lab: Notes/Report: glycohemoglobin 5.9% 5 - 6.5 % REASON FOR VISIT Discharge [facility] Medications Medication SIG (Take, Route, Frequency, Duration) Notes Start Date End Date Status EPINEPHrine 0.3 MG/0.3ML as directed int ramuscularly once 03/20/2022 Active Effient 10 MG as directed Orally o nce daily Active Atorvastatin Calcium 80 MG 1 tablet Orally Once a day 11/22/2023 A ctive Metoprolol Succinate ER 25 MG 1 tablet Orally Once a day; Duration: 30 day(s) Active Aspirin 81 81 MG 1 tablet Orally Once a day; Duration: 30 day(s) Active Problems Problem Type SNOMED Code ICD Code Onset Dates Problem Status W/U Status Risk Notes Problem Atherosclerotic heart disease of soboba coronary artery without angina pectoris ([id number]) Coronary artery disease involving soboba coronary artery of soboba heart without angina pectoris (I25.10) Active confirmed Vital Signs Blood pressure systolic 120 mm Hg 02/06/20 24 Blood pressure diastolic 76 mm Hg 024 Heart Rate 80 /min 02/06/2024 Height 71 in 02/06/2024 Weight 285.4 lbs 02/06/2024 BMI 39.80 kg/m2 02/06/2024 Encounters Encounter Location Date Provider Diagnosis [facility] [address] [place] [id number] 02/06/2024 Vasyl Doss Coronary artery dise ase involving soboba coronary artery of soboba heart without angina pectoris I25.10 ; Stented coronary artery Z95.5 and Hyperglycemia R73.9 Assessments Encounter Date Diagnosis (ICD Code) Assessment Notes Treatment Notes Treatment Clinical Notes Section Notes 02/06/2024 Coronary artery disease involving soboba coronary artery of soboba heart without angina pectoris (ICD-10 - I25.10) continue current therapy, No Smoking 02/06/2024 Stented coronary artery (ICD-10 - Z95.5) 02/06/2024 Hyperglycemia (ICD-10 - R73.9) Plan Of Treatment Treatment Notes Assessment Notes Coronary artery disease invo lving soboba coronary artery of soboba heart without angina pectoris continue current therapy, No Smoking Next Appt Details Follow Up: 2 Months fasting, Reason: Progress Notes * SELENE SIGALADOB:1980 (45 yo M)Acc No.[id number]:02/06/2024 Progress Notes Patient: SELENE LIMON Provider: Vasyl Doss M.D. :1980 A ge:43 Y S ex:Male Date:02/06/2024 Address:[address] [place] [address], [place], [place] Subjective: * Chief Complaints: * 1 . Discharge [facility]. * HPI: H PI: Here for follow up on: h ospitalization after heart cath. Pt states he had his heart cath with Dr Pina on Saturday01/27/24 and on Saturday he had swelling in the right groin and came back to [facility] t o and was transferred to . They a rupture in the incision. Pt states he saw Cardiology for a follow up yesterday and had an Ultra sound and advised everything looked good. See pt docs. No smoking in 2 days. Uses vape occasionally. * ROS: D ERMATOLOGY: no R tyler. n o H vinnie. G ASTROENTEROLOGY: no N ausea. n o V omiting. n o D iarrhea.? U ROLOGY: no D ifficulty urinating. n o B lood in urine. * Medical History: A llergies. * Surgical History: r ight knee surgery , colonoscopy 09/28/2019. * Hospitalization/Major Diagno stic Procedure: [facility] - fever, body aches 09/29/2019. * Family History: F ather: alive 55 yrs. M other: alive 55 yrs. 1 sister(s) . . * Social History: C URRENT TOBACCO USE: No . C affeine: yes, frequency:. Home smoke detector use: yes. Alcohol: No. * Medications: T aking Metoprolol Succinate ER 25 MG Tablet Extended Release 24 Hour 1 tablet Orally Once a day , Taking Aspirin 81 81 MG Tablet Delayed Release 1 tablet Orally Once a day , Taking Effient 10 MG Tablet as directed Orally once daily , Taking EPINEPHrine 0.3 MG/0.3ML Solution Auto-injector as directed intramuscularly once , Taking Atorvastatin Calcium 80 MG Tablet 1 tablet Orally Once a day , Medication List reviewed and reconciled with the patient * Allergies: N .K.D.A. Objective: * Vitals: W t:285.4, Temp:98.1, BP:120/76, HR:80, Nurse:KEATON, Ht: 71, BMI:39.80. * Examination: G eneral Examination: General Appearance: N AD. H EENT: u nremarkable.?Oral cavity: n o lesions, mucosa moist and WNL, no erythema. N mikhail: s upple, no lymphadenopathy. C hest: n ormal shape and expansion. H eart: R SR, 100. L ungs: clear to auscultation. A bdomen: soft and nontender, no organomegaly or masses. N eurologic Exam: I ntact, gait normal. S kin: n ormal, no rash. P eripheral pulses:?normal . E xtremities: t race leg edema, resolving eccymoses of the right groin. & #160; Assessment: * Assessment: 1. C oronary artery disease involving soboba coronary artery of soboba heart without angina pectoris - I25.10 (Primary) 2 . S tented coronary artery - Z95.5 3 . H yperglycemia - R73.9 Plan: * Treatment: 2. H yperglycemia L AB: Glycohemoglobin A1c (in house) (Collection Date & Time - 02/06/2024) Value Reference Range g lycohemoglobin 5.9% 5 - 6.5 % * Nilda Winters 02/06/2024 2:43 :35 PM > results reviewed w/ pt in office * Procedure Codes: 3 6416 CAPILLARY BLOOD DRAW, 62463 GLYCATED HEMOGLOBIN TEST, Modifiers: QW * Follow Up: 2 Months fasting * Images: Billing Information: * Visit Code: 09942 Office Visit, Est Pt., Level 4. * Procedure Codes: 59327 CAPILLARY BLOOD DRAW. 43865 GLYCATED HEMOGLOBIN TEST. Modifiers: QW * Electronic signature of Vasyl Doss MD on 07/24/2025 at 06:21 PM EDT Sign off status: Pending * Provider: Vasyl Doss M.D. Date: 0 02/06/2024 Generated for Valerianoi ng/Elving/eTransmitting on: 1 09/23/2024 06:21 PM EDT History and Physical Notes * HPI (History of Present Illness) Category Sub-Category Detail Notes Category Not es HPI Here for follow up on: hospitalization after heart cath. Pt states he had his heart cath with Dr Pina on Saturday01/27/24 and on Saturday he had swelling in the right groin and came back to [facility] to and was transferred to . They a rupture in the incision. Pt states he saw Cardiology for a follow up yesterday and had an Ultra sound and advised everything looked good. See pt docs No smoking in 2 days. Uses vape occasionally. Examination Category Sub-Category Detail Notes Category Not es General Examination HEENT: unremarkable Heart: RSR, 100 Lungs: clear to auscultatio n Abdomen: soft and nontender, no organomegaly or masses Extremities: trace leg edema, res olving eccymoses of the right groin General Appearance: NAD Skin: normal, no rash Neurologic Exam: Intact, gait normal Neck: supple, no lymphaden opathy Oral cavity: no lesions, mucosa m oist and WNL, no erythema Peripheral pulses: normal Chest: normal shape and exp ansion
--- OUTSIDE RECORDS SUMMARY | 2024-04-10 06:30 | XMS_ITS ---
Author Organization [facility] Address [address] [facility] [address] [place], [place] [id number] Care Team Providers Care Business Applications Manager Name Role Phone Vasyl Doss Primary Care Provider Allergies No Known Allergies Results Component Value Reference Range Notes P-Basic Metabolic Panel (BMP ) Reviewed date:04/13/2024 09:48:28 AM Interpretation:gluc 138 Performing Lab: Notes/Report: Test performed by [facility] [address] [place] [address] , [address], [place] [address] Aden Pacheco MD, Food Selector CLIA: [id number] Sodium 139 135-145 mmol/L Potassium 4.3 3.5-5.3 mmol/L Chloride 106 97-108 mmol/L CO2 23 22-32 mmol/L Glucose 138 65-99 mg/dL BUN 12 6-20 mg/dL Creatinine 0.72 0.70-1.30 mg/dL Calcium 9.4 8.6-10.4 mg/dL eGFR by Creatinine 117 >59 mL/min/1.73m2 REASON FOR VISIT check up with fasting labs Medications Medication SIG (Take, Route, Frequency, Duration) Notes Start Date End Date Status Effient 10 MG as directed Orally o nce daily Active EPINEPHrine 0.3 MG/0.3ML as directed int ramuscularly once 03/20/2022 Active Atorvastatin Calcium 80 MG 1 tablet Orally Once a day 11/22/2023 A ctive Metoprolol Succinate ER 25 MG 1 tablet Orally Once a day; Duration: 30 day(s) Active Aspirin 81 81 MG 1 tablet Orally Once a day; Duration: 30 day(s) Active Nitroglycerin 0.4 MG as directed Subling ual as needed 04/10/2024 Active Vital Signs Blood pressure systolic 122 mm Hg 04/10/20 24 Blood pressure diastolic 80 mm Hg 024 Heart Rate 80 /min 04/10/2024 Height 71 in 04/10/2024 Weight 287.8 lbs 04/10/2024 BMI 40.14 kg/m2 04/10/2024 Encounters Encounter Location Date Provider Diagnosis [facility] [address] [facility] [address] [place] [id number] 04/10/2024 Vasyl Doss Coronary artery disease involving [place] coronary artery of [place] heart without angina pectoris I25.10 ; Stented coronary artery Z95.5 and Chest pain, unspecified type R07.9 Assessments Encounter Date Diagnosis (ICD Code) Assessment Notes Treatment Notes Treatment Clinical Notes Section Notes 04/10/2024 Coronary artery disease involving [place] coronary artery of [place] heart without angina pectoris (ICD-10 - I25.10) 04/10/2024 Stented coronary artery (ICD-10 - Z95.5) 04/10/2024 Chest pain, unspecified type (ICD-10 - R07.9) Plan Of Treatment Medication Medication Name Sig Start Date Stop Date Notes Nitroglycerin 0.4 MG as directed Sublingual as needed 03/23 Next Appt Details Follow Up: 4 Months fasting, Reason: Progress Notes * JOVONSELENE MANTILLADOB:1980 (45 yo M)Acc No.[id number]:04/10/2024 Progress Notes Patient: SELENE LIMON Provider: Vasyl Doss M.D. :1980 A ge:43 Y S ex:Male Date:04/10/2024 Address:[address] [place] [address], [id number] Subjective: * Chief Complaints: * 1 . Check up with fasting labs. * HPI: C ardiology: The patient is here for a check up on CAD. Pt states he is having some episodic dizziness and sometime numbness in his leg and arms and hands. Pt states he has had some some episodic chest pain that will last for a few minutes and other times about 5- 10 minutes. Pt states he is scheduled to follow up with Cardiology on the Pt is fasting. 43 year old male presents with c/o Chest Pain. c/o Dizziness l ightheaded. Denies : Short of Breath. D enies : Headaches. * ROS: D ERMATOLOGY: no R tyelr. n o H vinnie. G ASTROENTEROLOGY: no N ausea. n o V omiting. n o D iarrhea.? U ROLOGY: no D ifficulty urinating. n o B lood in urine. * Medical History: A llergies. * Surgical History: r ight knee surgery , colonoscopy 09/28/2019. * Hospitalization/Major Diagno stic Procedure: H ER - fever, body aches 09/29/2019. * [...] Allergies: N .K.D.A. Objective: * Vitals: W t:287.8, Temp:97.9, BP:122/80, HR:80, O2 Sat:98% on RA, Nurse:KEATON, Ht: 71, BMI:40.14. * Examination: G eneral Examination: General Appearance: N AD. H EENT: u nremarkable.?Oral cavity: n o lesions, mucosa moist and WNL, no erythema. N mikhail: s upple, no lymphadenopathy. C hest: n ormal shape and expansion. H eart: R SR, no ectopics. L ungs: c lear to auscultation. A bdomen: soft and nontender, no organomegaly or masses.?Neurologic Exam: I ntact, gait normal. S kin: n ormal, no rash. P eripheral pulses: n ormal . E xtremities: n o leg edema. Assessment: * Assessment: 1. C oronary artery disease involving [place] coronary artery of [place] heart without angina pectoris - I25.10 (Primary) 2 . S tented coronary artery - Z95.5 3 . C hest pain, unspecified type - R07.9 Plan: * Treatment: Value Reference Range B UN 12 6-20 - mg/dL * C alcium 9.4 8.6-10.4 - mg/dL * C hloride 106 97-108 - mmol/L * C O2 23 22-32 - mmol/L * C reatinine 0.72 0.70-1.30 - mg/dL * G lucose 138 H 65-99 - mg/dL * P otassium 4.3 3.5-5.3 - mmol/L * S odium 139 135-145 - mmol/L * e GFR by Creatinine 117 >59 - mL/min/1.73m2 * Lala Irving 04/13/2024 9:48: 25 AM >See phone encounter 2.?Chest pain, unspecified type? Start Nitroglycerin Tablet Sublingual, 0.4 MG, as directed, Sublingual, as needed, 1 Unspecified, Refills 2.?? * Procedure Codes: 9 4760 PULSE OX * Follow Up: 4 Months fasting * Images: Billing Information: * Visit Code: 08426 Office Visit, Est Pt., Level 4. * Procedure Codes: 92647 PULSE OX. * Electronic signature of Vasyl Doss MD on 07/24/2025 at 06:21 PM EDT Sign off status: Pending * Provider: Vasyl Doss M.D. Date: 0 04/10/2024 Generated for Dioni carrera/Ty/eTjustinsmitting on: 09/23/2024 06:21 PM EDT History and Physical Notes * HPI (History of Present Illness) Category Sub-Category Detail Notes Category Not es Cardiology Short of Breath Chest Pain Dizziness lightheaded Headaches Examination Category Sub-Category Detail Notes Category Not es General Examination HEENT: unremarkable Heart: RSR, no ectopics Lungs: clear to auscultatio n Abdomen: soft and nontender, no organomegaly or masses Extremities: no leg edema General Appearance: NAD Skin: normal, no rash Neurologic Exam: Intact, gait normal Neck: supple, no lymphaden opathy Oral cavity: no lesions, mucosa m oist and WNL, no erythema Peripheral pulses: normal Chest: normal shape and exp ansion
--- OUTSIDE RECORDS SUMMARY | 2024-08-14 05:45 | XMS_ITS ---
Author Organization [facility] Address [address] [facility] [address] [place], [place] [id number] Care Team Providers Care Vp Training Name Role Phone Vasyl Doss Primary Care Provider Allergies No Known Allergies Results Component Value Reference Range Notes P-Comprehensive Metabolic Pa wilbert (CMP) Reviewed date:08/18/2024 03:49:06 PM Interpretation:gluc 219, alt 67 Performing Lab: Notes/Report: Test performed by [facility] , [address], [place] [address] Aden Pacheco MD, Manager Pulmonary CLIA: [id number] Sodium 136 135-145 mmol/L Potassium 4.1 3.5-5.3 mmol/L Chloride 102 97-108 mmol/L CO2 23 22-32 mmol/L Glucose 219 65-99 mg/dL BUN 13 6-20 mg/dL Creatinine 0.80 0.70-1.30 mg/dL Calcium 9.3 8.6-10.4 mg/dL eGFR by Creatinine 113 >59 mL/min/1.73m2 Protein 6.7 6.0-8.3 g/dL Albumin 4.1 3.5-5.3 g/dL Alkaline Phosphatase 116 40-129 IU/L ALT (SGPT) 67 <5-55 IU/L AST (SGOT) 27 <5-46 IU/L Bilirubin, Total 0.4 <0.2-1.2 mg/dL A/G Ratio 1.6 1.1-2.5 P-Lipid Panel Reviewed date:08/18/2024 03:49:06 PM Interpretation:trigs 171, hdl 38, non-hdl 149 Performing Lab: Notes/Report: Test performed by [facility] [address] [facility] , [address], [place] [address] Aden Pacheco MD, Manager Pulmonary CLIA: [id number] Cholesterol 187 <200 mg/dL Triglycerides 171 <150 mg/dL HDL Cholesterol 38 >39 mg/dL Cholesterol / HDL Ratio 4.92 0.00-4.99 Ratio Non-HDL Cholesterol 149 <130 mg/dL LDL Cholesterol (Calculation) 115 <130 mg/dL LDL Cholesterol Levels* Less than 100 mg/dL Optimal 100 to 129 mg/dL Near Optimal/ Above Optimal 130 to 159 mg/dL Borderline High 160 to 189 mg/dL High 190 mg/dL and above Very High * Categories as recommended by the 2004 ATPIII guidelines LDL/HDL Ratio 3.0 <3.3 Ratio LDL Cholesterol Patient History Test Date: 08/14/2024 LDL Results: 115 Units: mg/dL % Change: - REASON FOR VISIT 4 months with fasting labs Medications Medication SIG (Take, Route, Frequency, Duration) Notes Start Date End Date Status Nitroglycerin 0.4 MG as directed Subling ual as needed 04/10/2024 Active Atorvastatin Calcium 80 MG 1 tablet Orally Once a day 11/22/2023 Active traMADol HCl 50 MG 1 tab(s) Orally four times a day as needed 07/21/2024 Not-Taking Aspirin 81 81 MG 1 tablet Orally Once a day; Duration: 30 day(s) Active Metoprolol Succinate ER 25 MG 1 tablet Orally Once a day; Duration: 30 day(s) Active EPINEPHrine 0.3 MG/0.3ML as directed intramuscularly once 03/20/2022 Active Effient 10 MG as directed Orally o nce daily Active Vital Signs Blood pressure systolic 120 mm Hg 08/14/20 24 Blood pressure diastolic 90 mm Hg 024 Heart Rate 89 /min 08/14/2024 Height 71 in 08/14/2024 Weight 295.2 lbs 08/14/2024 BMI 41.17 kg/m2 08/14/2024 Encounters Encounter Location Date Provider Diagnosis [facility] [address] [facility] [address] [facility] [address] [place] [id number] 08/14/2024 Vasyl Doss Myofasciitis M60.9 a nd Stented coronary artery Z95.5 Assessments Encounter Date Diagnosis (ICD Code) Assessment Notes Treatment Notes Treatment Clinical Notes Section Notes 08/14/2024 Myofasciitis (ICD-10 - M60.9) Tylenol 08/14/2024 Stented coronary artery (ICD-10 - Z95.5) Plan Of Treatment Treatment Notes Assessment Notes Myofasciitis Tylenol Next Appt Details Follow Up: 3 Months, Reason: Procedure Notes * Category Sub-Category Detail Notes Procedure-other Theracane applied to jameson er point, with some relief Progress Notes * SELENE SIGALADOB:1980 (45 yo M)Acc No.[id number]:08/14/2024 Progress Notes Patient: SELENE LIMON Provider: Vasyl Doss M.D. :1980 A ge:44 Y S ex:Male Date:08/14/2024 Address:[address] [place] [address], [facility] Subjective: * Chief Complaints: * 1 . 4 months with fasting labs. * HPI: C ardiology: The pt is here today for a check up on CAD. Pt states he is doing good except for some pain in the right shoulder. Pt states the pain is worse some days than others. Pt rates the pain a 4/10 today. Pt states he is fasting except for some coke this morning. Denies : Chest Pain. D enies : Short of Breath. D enies : Dizziness. D enies : Palpitations. Has cardiology appt next week. I am reluctant to treat with NSAID due to Effient. * ROS: D ERMATOLOGY: no R tyler. n o H vinnie. G ASTROENTEROLOGY: no N ausea. n o V omiting. n o D iarrhea.? U ROLOGY: no D ifficulty urinating. n o B lood in urine. * Medical History: A llergies. * Surgical History: R T Knee , Colonoscopy 09/28/2019, Heart Cath, stented 12/2023, Heart cath, stented 01/2024. * Hospitalization/Major Diagno stic Procedure: F ever, Body Aches- [facility] ER 09/29/2019. * Family History: F ather: alive [...] tablet Orally Once a day , Taking Nitroglycerin 0.4 MG Tablet Sublingual as directed Sublingual as needed , Not-Taking traMADol HCl 50 MG Tablet 1 tab(s) Orally four times a day as needed , Discontinued Cyclobenzaprine HCl 10 MG Tablet 1 tab(s) Orally Three times a day , Discontinued Medrol 4 MG Tablet Therapy Pack as directed Orally , Medication List reviewed and reconciled with the patient * Allergies: N .K.D.A. Objective: * Vitals: W t:295.2, Temp:98.2, BP:120/90, HR:89, Nurse:KEATON, Ht: 71, BMI:41.17. * Examination: G eneral Examination: General Appearance: [...] rash. P eripheral pulses: n ormal . B ack: trigger point at edge of the right scapula. E xtremities: no leg edema. Assessment: * Assessment: 1. M yofasciitis - M60.9 (Primary) 2 . S tented coronary artery - Z95.5? Plan: * Treatment: 2. S tented coronary artery L AB: P-Comprehensive Metabolic Panel (CMP) (Collection Date & Time - 08/14/2024 12:54 PM) g beulah 219, alt 67 Value Reference Range A /G Ratio 1.6 1.1-2.5 - * A lbumin 4.1 3.5-5.3 - g/dL * A lkaline Phosphatase 116 40-129 - IU/L * A LT (SGPT) 67 H <5-55 - IU/L * A ST (SGOT) 27 <5-46 - IU/L * B ilirubin, Total 0.4 <0.2-1.2 - mg/dL * B UN 13 6-20 - mg/dL * C alcium 9.3 8.6-10.4 - mg/dL * C hloride 102 97-108 - mmol/L * C O2 23 22-32 - mmol/L * C reatinine 0.80 0.70-1.30 - mg/dL * G lucose 219 H 65-99 - mg/dL * P otassium 4.1 3.5-5.3 - mmol/L * S odium 136 135-145 - mmol/L * P rotein 6.7 6.0-8.3 - g/dL * e GFR by Creatinine 113 >59 - mL/min/1.73m2 * Lala Irving 08/18/2024 3:48 :58 PM >See phone encounter ?LAB: P-Lipid Panel (Collection Date & Time - 08/14/2024 12:54 PM)?trigs 171, hdl 38, non-hdl 149* Value Reference Range C holesterol / HDL Ratio 4.92 0.00-4.99 - Ratio * C holesterol 187 <200 - mg/dL * H DL Cholesterol 38 L >39 - mg/dL * L DL Cholesterol (Calculation) 115 <130 - mg/d L * L DL/HDL Ratio 3.0 <3.3 - Ratio * N on-HDL Cholesterol 149 H <130 - mg/dL * T riglycerides 171 H <150 - mg/dL * Lala Irving 08/18/2024 3:48 :58 PM >See phone encounter * Procedures: P rocedure-other: Theracane a pplied to trigger point, with some relief. * Follow Up: 3 Months * Images: Billing Information: * Visit Code: 53898 Office Visit, Est Pt., Level 3. * Procedure Codes: * Electronic signature of Vasyl Doss MD on 07/24/2025 at 06:21 PM EDT Sign off status: Pending * Provider: Vasyl Doss M.D. Date: 10/14/2023 Generated for Dioni carrera/Ty/eTransmitting on: 09/23/2024 06:21 PM EDT History and Physical Notes * HPI (History of Present Illness) Category Sub-Category Detail Notes Category Not es Cardiology Short of Breath Has cardiolo gy appt next week. I am reluctant to treat with NSAID due to Effient. Chest Pain Palpitations Dizziness Examination Category Sub-Category Detail Notes Category Not [...] and WNL, no erythema Peripheral pulses: normal Back: trigger point at edg e of the right scapula Chest: normal shape and exp ansion
--- OUTSIDE RECORDS SUMMARY | 2024-09-01 07:00 | XMS_ITS ---
Author Organization [facility] Address [address] [phone] Care Team Providers Care Real Estate Office Supervisor Name Role Phone Vasyl oDss Primary Care Provider LottRoxi dunbarCaridad Unavailable [phone] Allergies No Known Allergies Results Component Value Reference Range Notes CBC Fingerstick (in house) Reviewed date:09/02/2024 12:12:22 PM Interpretation: Performing Lab: Notes/Report: wbc 12.1 3.5 - 10 lym 27.7 15 - 50 mid 5.6 2 - 15 gran 66.7 35 - 80 rbc 5.47 3.5 - 5.5 hgb 15.2 11.5 - 16.5 hct 47.0 35 - 55 mcv 85.8 75 - 100 mch 27.7 25 - 35 mchc 32.3 31 - 38 plat 236 100 - 400 REASON FOR VISIT congestion Medications Medication SIG (Take, Route, Frequency, Duration) Notes Start Date End Date Status Metoprolol Succinate ER 25 MG 1 tablet Orally Once a day; Duration: 30 day(s) Active Aspirin 81 81 MG 1 tablet Orally Once a day; Duration: 30 day(s) Active Nitroglycerin 0.4 MG as directed Subling ual as needed 04/10/2024 Active Albuterol Sulfate HFA 108 (90 Base) MCG/ACT 1 puff as needed Inhalation every 4 hrs prn 09/01/2024 Active Cefuroxime Axetil 500 MG 1 tablet Orally every 12 hrs; Duration: 7 day(s) 09/01/2024 Active Effient 10 MG as directed Orally o nce daily Active Atorvastatin Calcium 80 MG 1 tablet Orally Once a day 11/22/2023 A ctive EPINEPHrine 0.3 MG/0.3ML as directed int ramuscularly once 03/20/2022 Active Vital Signs Blood pressure systolic 118 mm Hg 09/01/20 24 Blood pressure diastolic 80 mm Hg 024 Heart Rate 89 /min 09/01/2024 Height 71 in 09/01/2024 Weight 295.0 lbs 09/01/2024 BMI 41.14 kg/m2 09/01/2024 Encounters Encounter Location Date Provider Diagnosis [facility] [address] [facility] [address] [place] [phone] 09/01/2024 Caridad Lott URI (upper respirato ry infection) J06.9 Assessments Encounter Date Diagnosis (ICD Code) Assessment Notes Treatment Notes Treatment Clinical Notes Section Notes 09/01/2024 URI (upper respiratory infection) (ICD-10 - J06.9) fluids, rest, supportive measures for fever/symptom relief Plan Of Treatment Medication Medication Name Sig Start Date Stop Date Notes Albuterol Sulfate HFA 108 (9 0 Base) MCG/ACT 1 puff as needed Inhalation every 4 hrs prn 09/01/2024 Cefuroxime Axetil 500 MG 1 tablet Orally every 12 hrs; Duration: 7 day(s) 09/01/2024 Treatment Notes Assessment Notes URI (upper respiratory infection) fluids , rest, supportive measures for fever/symptom relief Next Appt Details Follow Up: prn, Reason: Progress Notes * JOVONSELENEDOB:1980 (45 yo M)Acc No.[id number]:09/01/2024 Progress Notes Patient: SELENE LIMON Provider: ARIAN Roy :1980 A ge:44 Y S ex:Male Date:09/01/2024 Address:[address] [place] [address], [facility] Pcp:Vasyl Doss Subjective: * Chief Complaints: * 1 . Congestion. * HPI: E NT/respiratory: 44 year old male presents with c/o cough P t sts he has had moments where he has violent coughing and sts the other night he passed out due to this. Pt sts he has taken cough drops, cough syrup and nothing has helped. c/o nasal congestion. c/o post nasal drainage. c/o chest congestion. c/o dizziness. Denies : sore throat. D enies : Fever. D enies : ear pain. D enies : Chest Pain. D enies : Short of Breath. D enies : headache. D enies : smoking. D enies : body aches. 1 1/2 week og cough. * ROS: D ERMATOLOGY: no R tyler. [...] Diagno stic Procedure: F ever, Body Aches- [facility] ER 09/29/2019. * Family History: F ather: [...] Sublingual as directed Sublingual as needed , Medication List reviewed and reconciled with the patient * Allergies: N .K.D.A. Objective: * Vitals: W t:295.0, Temp:98.4, BP:118/80, HR:89, Nurse:DARYA, Ht: 71, BMI:41.14. * Examination: E NT/Respiratory: General Appearance: well nourished and hydrated, NAD, alert frequent cough. E yes: sclera and conjunctiva clear. E ars: auditory canals normal bilaterally, tympanic membranes normal bilaterally. N ose : nares patent. S inuses : non tender bilaterally. O ral cavity : no erythema or exudate seen on pharynx.?Neck : supple, no cervical lymphadenopathy. H eart : RRR. L ungs: CTAB A&P. Assessment: * Assessment: 1. U RI (upper respiratory infection) - J06.9 (Primary) Plan: * Treatment: * Labs: * L ab: CBC Fingerstick (in house) (Collection Date & Time - 09/01/2024) Value Reference Range w bc 12.1 3.5 - 10 * l ym 27.7 15 - 50 * m id 5.6 2 - 15 * g ran 66.7 35 - 80 * r bc 5.47 3.5 - 5.5 * h gb 15.2 11.5 - 16.5 * h ct 47.0 35 - 55 * m cv 85.8 75 - 100 * m ch 27.7 25 - 35 * m chc 32.3 31 - 38 * p lat 236 100 - 400 * Chelsey Mast 09/01/2024 11:1 6:42 AM > , Provider reviewed results while patient in office.Caridad Lott 09/02/2024 12:12:23 PM > * Procedure Codes: 3 6416 CAPILLARY BLOOD DRAW, 25719 CBC WITH AUTO DIFF * Follow Up: p rn * Images: Billing Information: * Visit Code: 49389 Office Visit, Est Pt., Level 3. * Procedure Codes: 20184 CAPILLARY BLOOD DRAW. 46475 CBC WITH AUTO DIFF. * Electronic signature of Jana Lott APRN on 07/24/2025 at 06:21 PM EDT Sign off status: Pending * Provider: ARIAN Roy Date: 11/02/2023 Generated for Dioni carrera/Ty/eTfranny on: 09/23/2024 06:21 PM EDT History and Physical Notes * HPI (History of Present Illness) Category Sub-Category Detail Notes Category Not es ENT/respiratory sore throat 1 1/2 week o g cough ear pain Short of Breath Chest Pain cough Pt sts he has had mo ments where he has violent coughing and sts the other night he passed out due to this. Pt sts he has taken cough drops, cough syrup and nothing has helped Fever post nasal drainage headache chest congestion nasal congestion smoking dizziness body aches Examination Category Sub-Category Detail Notes Category Not es ENT/Respiratory Oral cavity : no erythema or exudate s een on pharynx Sinuses : non tender bilateral ly Ears: auditory canals norm al bilaterally, tympanic membranes normal bilaterally Neck : supple, no cervical lymphadenopathy Heart : RRR Lungs: CTAB A&P General Appearance: well nourished and h ydrated, NAD, alert frequent cough Nose : nares patent Eyes: sclera and conjuncti va clear
--- OUTSIDE RECORDS SUMMARY | 2024-11-05 06:00 | XMS_ITS ---
Author Organization [facility] Address [address] [id number] Care Team Providers Care Land Developer Name Role Phone Vasyl Doss Primary Care Provider Gloria Lane Unavailable [phone] Allergies No Known Allergies Results Component Value Reference Range Notes Influenza Screen (in house) Reviewed date:11/05/2024 11:35:46 AM Interpretation:neg Performing Lab: Notes/Report: neg results neg Covid test (in house) Reviewed date:11/05/2024 11:35:31 AM Interpretation:pos Performing Lab: Notes/Report: pos Result: pos REASON FOR VISIT possible flu Medications Medication SIG (Take, Route, Frequency, Duration) Notes Start Date End Date Status Effient 10 MG as directed Orally o nce daily Active Benzonatate 200 MG 1 capsule Orally Thr ee times a day 11/05/2024 Active Aspirin 81 81 MG 1 tablet Orally Once a day; Duration: 30 day(s) Active Atorvastatin Calcium 80 MG 1 tablet Orally Once a day 11/22/2023 A ctive EPINEPHrine 0.3 MG/0.3ML as directed int ramuscularly once 03/20/2022 Active Metoprolol Succinate ER 25 MG 1 tablet Orally Once a day; Duration: 30 day(s) Active Nitroglycerin 0.4 MG as directed Subling ual as needed 04/10/2024 Active Paxlovid (300/100) 20 x 150 MG & 10 x 100MG 3 tablets Orally Twice a day; Duration: 5 day(s) 11/05/2024 Active Vital Signs Blood pressure systolic 120 mm Hg 11/05/19 25 Blood pressure diastolic 90 mm Hg 025 Heart Rate 93 /min 11/05/2024 Height 71 in 11/05/2024 Weight 287.6 lbs 11/05/2024 BMI 40.11 kg/m2 11/05/2024 Encounters Encounter Location Date Provider Diagnosis [facility] [address] [place] [id number] 11/05/[address] COVID-19 U07.1 Assessments Encounter Date Diagnosis (ICD Code) Assessment Notes Treatment Notes Treatment Clinical Notes Section Notes 11/05/2024 COVID-19 (ICD-10 - U07.1) Fluids, rest, supportive measures for fever and symptoms relief, discussed covid vitamins and isolation period. Patient will hold his atorvastatin while taking the medication as well as 3 days afterward. Plan Of Treatment Medication Medication Name Sig Start Date Stop Date Notes Benzonatate 200 MG 1 capsule Orally Thr ee times a day 11/05/2024 Paxlovid (300/100) 20 x 150 MG & 10 x 100MG 3 tablets Orally Twice a day; Duration: 5 day(s) 11/05/2024 Treatment Notes Assessment Notes COVID-19 Fluids, rest, suppor tive measures for fever and symptoms relief, discussed covid vitamins and isolation period. Patient will hold his atorvastatin while taking the medication as well as 3 days afterward. Next Appt Details Follow Up: prn, Reason: Progress Notes * JOVON SELENEDOB:1980 (45 yo M)Acc No.[id number]:11/05/2024 Progress Notes Patient: SELENE LIMON Provider: GABRIELA Lema :1980 A ge:44 Y S ex:Male Date:11/05/2024 Address:[address] [place] [address], [id number] Pcp:Vasyl Doss Subjective: * Chief Complaints: * 1 . Possible flu. * HPI: E NT/respiratory: 44 year old male presents with c/o cough. c/o Fever P t sts he did have a fever yesterday and the night before. Pt sts he has been hot, cold, chills, sweaty. c/o body aches. Denies : sore throat. D enies : ear pain. Pt sts his symptoms started 2 days ago. * ROS: D ERMATOLOGY: no R tyler. [...] Diagno stic Procedure: F ever, Body Aches- [facility] ER 09/29/2019. * Family History: [...] Allergies: N .K.D.A. Objective: * Vitals: W t:287.6, Temp:98.5, BP:120/90, HR:93, O2 Sat:99% on RA, Nurse:alan, Ht: 71, BMI:40.11. * Examination: E NT/Respiratory: General Appearance: N AD. E ars: a uditory canals normal bilaterally, TM's WNL. N ose : turbinates red, congested. S inuses : non tender bilaterally. O ral cavity : erythema without exudate on pharynx. N mikhail : n o cervical lymphadenopathy. H eart : R RR, normal S1 S2, no murmurs. L ungs: c lear to auscultation bilaterally. Assessment: * Assessment: 1. C OVID-19 - U07.1 (Primary) Plan: * Treatment: Value Reference Range r esults neg * Chelsey Mast 11/05/2024 10:19 :38 AM > Provider reviewed results while patient in office.Gloria Lane 11/05/2024 11:35:35 AM > ?LAB: Covid test (in house) (Collection Date & Time - 11/05/2024)?pos* Value Reference Range R esult: pos * Chelsey Mast 11/05/2024 10:19 :10 AM > Provider reviewed results while patient in office.Gloria Lane 11/05/2024 11:35:28 AM > Notes: Fluids, rest, supportive measures for fever and symptoms relief, discussed covid vitamins and isolation period. Patient will hold his atorvastatin while taking the medication as well as 3 daysafterward.?? * Procedure Codes: [address] [place], [address] Flu Test- Nasal Swab, Modifiers: QW , [address] COVID TEST IN HOUSE, Modifiers: QW , 3074F SYST BP LT 130 MM HG, 3080F DIAST BP = 90 MM HG * Follow Up: p rn * Images: Billing Information: * Visit Code: 49151 Office Visit, Est Pt., Level 3. * Procedure Codes: [address] [place]. [address] Flu Test- Nasal Swab. Modifiers: QW 28362 COVID TEST IN HOUSE. Modifiers: QW 3074F SYST BP LT 130 MM HG. 3080F DIAST BP = 90 MM HG. * Electronic signature of GABRIELA Gunter on 07/24/2025 at 06:20 PM EDT Sign off status: Pending * Provider: GABRIELA Lema Date: 0 11/05/2024 Generated for Dioni carrera/Ty/eTransmitting on: 1 09/23/2024 06:20 PM EDT History and Physical Notes * HPI (History of Present Illness) Category Sub-Category Detail Notes Category Not es ENT/respiratory sore throat Pt sts his s ymptoms started 2 days ago ear pain cough Fever Pt sts he did have a fever yesterday and the night before. Pt sts he has been hot, cold, chills, sweaty body aches Examination Category Sub-Category Detail Notes Category Not es ENT/Respiratory Oral cavity : erythema without exudate on pharynx Sinuses : non tender bilateral ly Ears: auditory canals norm al bilaterally, TM's WNL Neck : no cervical lymphade nopathy Heart : RRR, normal S1 S2, n o murmurs Lungs: clear to auscultatio n bilaterally General Appearance: NAD Nose : turbinates red, jame ested
--- OUTSIDE RECORDS SUMMARY | 2024-11-13 07:15 | XMS_ITS ---
Author Organization [facility] Address [address] [facility] 36 [facility] [address] [place], [place] [phone] Care Team Providers Care Electronic Data Interchange Specialist Name Role Phone Vasyl Doss Primary Care Provider Allergies No Known Allergies REASON FOR VISIT 3 months Encounters Encounter Location Date Provider [facility] [address] [facility] [address] [phone] 11/13/2024 Vasyl Doss Plan Of Treatment No Information Progress Notes * JOVON SELENEDOB:1980 (45 yo M)Acc No.[id number]:11/13/2024 Progress Notes Patient: SELENE LIMON Provider: Vasyl Doss M.D. :1980 A ge:44 Y S ex:Male Date:11/13/2024 Address:[address] [place], [place] [id number] Subjective: * Chief Complaints: * 1 . 3 months. * ROS: D ERMATOLOGY: no R tyler. [...] Diagno stic Procedure: F ever, Body Aches- [facility] ER 09/29/2019. * Family History: F ather: alive 55 yrs. M other: alive 55 yrs. 1 sister(s) . . * Social History: C URRENT TOBACCO USE: No . C affeine: yes, frequency:. Home smoke detector use: yes. Alcohol: No. * Allergies: N .K.D.A. Objective: * Vitals: Assessment: Plan: * Treatment: * Images: Billing Information: * Visit Code: * Procedure Codes: * Electronic signature of Vasyl Doss MD on 07/24/2025 at 06:21 PM EDT Sign off status: Pending * Provider: Vasyl Doss M.D. Date: 0 11/13/2024 Generated for Dioni carrera/Ty/Maksim on: 09/23/2024 06:21 PM EDT
[2025-07-24] VITALS (9 sets, daily range): BP systolic 108–154; BP diastolic 58–90; PULSE 78–102; RESP 14–20; TEMP 36.6–37.1; O2SAT 95–98; BMI 38.0; BMI 37.9
--- OUTSIDE RECORDS SUMMARY | 2025-07-24 18:21 | XMS_ITS | Clinical Summary ---
Author Organization [facility] Address [address] [place] [address] Care Team Providers Care Concert Or Lecture Hall Manager Name Role Phone Tony Doss MD Primary Care Provider [phone] Allergies Active Allergy Reactions Criticality Noted Date Comments Wasp Venom Anaphylaxis High 02/01/2024 Medications atorvastatin (Lipitor) 80 MG tablet Take 1 tablet (80 mg) by mouth 1 (one) time each day. 4 Active nicotine (Nicoderm CQ) 21 MG/24HR patch APPLY 1 PATCH TOPICALLY ONCE DAILY FOR 14 DAYS THEN DECREASE TO 14MG PATCH FOR 14 DAYS, THEN DECREASE TO 7MG PATCH FOR 7 DAYS 4 Active prasugrel (Effient) 10 MG tablet Take 1 tablet (10 mg) by mouth 1 (one) time each day. 4 Active aspirin 81 MG EC tablet Take 1 tablet (81 mg) by mouth 1 (one) time each day. 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 No 02/02/2024 Within the last year, have y ou been humiliated or emotionally abused in other ways by your partner or ex-partner? No Within the last year, have y ou been kicked, hit, slapped, or otherwise physically hurt by your partner or ex-partner? No 02/02/2024 Within the last year, have y ou been raped or forced to have any kind of sexual activity by your partner or ex-partner? No 02/02/2024 PHQ-2 Answer Date Recorded Patient Health Questionnaire-2 Score 2 06/18/2022 Hunger Vital Sign Answer Date Recorded Within the past 12 months, y ou worried that your food would run out before you got the money to buy more. Never true 02/02/20 24 Within the past 12 months, t he food you bought just didn't last and you didn't have money to get more. Never true 02/02/2024 PRAPARE - Transportation Answer Date Re corded In the past 12 months, has l ack of transportation kept you from medical appointments or from getting medications? No 01/21 In the past 12 months, has l ack of transportation kept you from meetings, work, or from getting things needed for daily living? No 02/02/2024 Housing Stability Vital Sign Answer Sanya e Recorded In the last 12 months, was t here a time when you were not able to pay the mortgage or rent on time? No 02/02/2024 In the last 12 months, how many places have you lived? 1 02/02/2024 In the last 12 months, was t here a time when you did not have a steady place to sleep or slept in a fpc (including now)? No 02/02/2024 CAGE ASSESSMENT Answer Date Recorded Cage unable to access Not on file 02/01/2024 Cage max number of drinks Not on file 2023 Cage Beverages a week Not on file 02/01/2024 Have you ever felt you should CUT down on your d rinking? 0 02/01/2024 Have you been ANNOYED by people criticizing your drinking? 0 02/01/2024 Have you felt GUILTY about your drinking? 0 02/01/2024 Have you had a drink first t veto in the morning ([employer]EL[employer]) to steady your nerves or to get rid of a hangover? 0 02/01/2024 CAGE Questionnaire Score 0 024 Utilities Answer Date Recorded In the past 12 months has e [employer], gas, oil, or water company threatened to shut off services in your home? No 02/02/2024 Sex and Gender Information Value Date Recorded Sex Assigned at Not on file Legal Sex Male 8:25 PM EDT Gender Identity Not on file Sexual Orientation Not on file Last Filed Vital Signs Vital Sign Reading Time Taken Comments Blood Pressure 117/71 02/02/2024 4:31 PM EDT Pulse 78 02/02/2024 4:31 PM EDT Temperature 36.8 C (98.3 F) 02/02/2024 4:31 PM EDT Respiratory Rate 16 02/02/2024 4:31 PM EDT Oxygen Saturation 95% 02/02/2024 4:31 PM EDT Inhaled Oxygen Concentration - - Weight 128 kg (282 lb 10.1 oz) 02/01/2024 8:47 P M EDT Height 182.9 cm (6') 02/01/2024 3:41 AM EDT Body Mass Index 38.33 02/01/2024 3:41 AM EDT Plan of Treatment Health Maintenance Due Date Last Done Comments [facility]-HIV Screening 1980 [facility]-Hepatitis C Screening 1980 [facility]-/Child/Adol SDOH Screenings 1982 [facility]-Varicella Vaccines (1 of 2 - 13+ 2-dose series) 1995 [facility]- SDOH Screenings 2000 [facility]-Adult SDOH Screenings 2000 [facility]-Hepatitis B Vaccines (1 of 3 - 19+ 3-dose series) 2001 HPV Vaccines (1 - 3-dose SCD M series) 2009 [facility]-Depression Screening 06/18/2023 06/18/2022 [id number]-DZLHE-99 Vaccine (1 - 20 24-25 season) 2025 [facility]-Influenza Vaccine (#1) 2025 [facility]-DTaP,Tdap,and Td Vaccine s (2 - Td or Tdap) 09/10/2028 09/10/2018 [facility]-Zoster Vaccines (1 of 2) 2032 [facility]-Obesity Intervention Completed 02/01/2024 [facility]-HIB Vaccines Aged Out No longer e ligible based on patient's age to complete this topic [facility]-Hepatitis A Vaccines Aged Out No longer eligible based on patient's age to complete this topic [facility]-IPV Vaccines Aged Out No longer e ligible based on patient's age to complete this topic [facility]-Pneumococcal Vaccine: Pediatrics (0 to 5 Years) and At-Risk Patients (6 to 49 Years) Aged Out No long er eligible based on patient's age to complete this topic [facility]-Rotavirus Vaccines Aged Out No lo nger eligible based on patient's age to complete this topic Insurance [employer] MEDICAID Advance Directives * Full Code (Latest Code Status on File) Date Activated Date Inactivated Comments 02/01/2024 6:27 AM 02/02/2024 8:12 PM Question Answer Comments Patient has decision-making capacity? No Healthcare Surrogate: Parent(s) of the patient Care Teams Concert Or Lecture Hall Manager Relationship Specialty Start Date End Date Tony Doss MD [address] [place] [address] PCP - General 02/02/24
--- OUTSIDE RECORDS SUMMARY | 2025-07-24 18:21 | XMS_ITS | Patient Health Record ---
Author Organization [facility] Address [address] [phone] Care Team Providers Care Certified Activities Director Name Role Phone Vasyl Doss Primary Care Provider Caridad Lott Unavailable [phone] Unavailable [phone] Allergies No Known Allergies Results Component Value Reference Range Notes Influenza Screen (in house) Reviewed date:11/05/2024 11:35:46 AM Interpretation:neg Performing Lab: Notes/Report: neg results neg Covid test (in house) Reviewed date:11/05/2024 11:35:31 AM Interpretation:pos Performing Lab: Notes/Report: pos Result: pos CBC Fingerstick (in house) Reviewed date:09/02/2024 12:12:22 [...] - 38 plat 236 100 - 400 P-Lipid Panel Reviewed date:08/18/2024 03:49:06 PM Interpretation:trigs 171, hdl 38, non-hdl 149 Performing Lab: Notes/Report: CLIA: [id number] Aden Pacheco MD, [employer] [facility] [facility] , [address], [place] [address] Test performed by [facility] Cholesterol 187 <200 mg/dL Triglycerides 171 <150 [...] Results: 115 Units: mg/dL % Change: - P-Comprehensive Metabolic Pa wilbert (CMP) Reviewed date:08/18/2024 03:49:06 PM Interpretation:gluc 219, alt 67 Performing Lab: Notes/Report: Test performed by [facility], [email or web address] [address] [facility] , [address], [place] [address] Aden Pacheco MD, [employer] CLIA: [id number] Sodium 136 135-145 mmol/L Potassium 4.1 3.5-5.3 [...] 0.4 <0.2-1.2 mg/dL A/G Ratio 1.6 1.1-2.5 Reason For Referral No Information Medications Medication SIG (Take, Route, Frequency, Duration) Notes Start Date End Date Status Metoprolol Succinate ER 25 MG 1 tablet Orally Once a day; Duration: 30 day(s) Active Effient 10 MG as directed Orally o nce daily Active Benzonatate 200 MG 1 capsule Orally Thr ee times a day 11/05/2024 Active Aspirin 81 81 MG 1 tablet Orally Once a day; Duration: 30 day(s) Active Atorvastatin Calcium 80 MG 1 tablet Orally Once a day 11/22/2023 A ctive EPINEPHrine 0.3 MG/0.3ML as directed int ramuscularly once 03/20/2022 Active Nitroglycerin 0.4 MG as directed Subling ual as needed 04/10/2024 Active Paxlovid (300/100) 20 x 150 MG & 10 x 100MG 3 tablets Orally Twice a day; Duration: 5 day(s) 11/05/2024 Active Immunizations Vaccine Route Administration Date Status Comme nts Tetanus Tdap-Adacel (over 7yrs) Unknown 09/10/2018 Admi nistered Problems Problem Type SNOMED Code ICD Code Onset Dates Problem Status W/U Status Risk Notes Problem 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 ([id number]) Coronary artery disease involving red cliff coronary artery of red cliff heart without angina pectoris (I25.10) Active confirmed Problem Stented coronary artery (886336744) Stented coronary artery (Z95.5) Active confirmed Problem Diarrhea (66657381) Diarrhea, unspecified type (R19.7) Active confirmed Problem E coli enteritis (A04.4) Active confirmed Vital Signs Heart Rate 93 /min 11/05/2024 Blood pressure diastolic 90 mm Hg 11/05/2024 Height 71 in 11/05/2024 Blood pressure systolic 120 mm Hg 11/05/2024 Weight 287.6 lbs 11/05/2024 BMI 40.11 kg/m2 11/05/2024 Encounters Encounter Location Date Provider Diagnosis [facility] [address] [place] [id number] 08/14/2024 Vasyl Doss Myofasciitis M60.9 a nd Stented coronary artery Z95.5 [facility] [address] [place], [place] [phone] 09/01/2024 Caridad Lott URI (upper respirato ry infection) J06.9 [facility] [address] [facility] 36 [facility] [address] [place], [place] [id number] 11/05/[address] COVID-19 U07.1 [facility] [address] [facility] [address] [facility] [address] [place], [place] [phone] 08/18/2024 Vasyl Doss [facility] [address] [facility] 36 [facility] [address] [place], [place] [phone] 09/01/2024 Vasyl Doss Assessments Encounter Date Diagnosis (ICD Code) Assessment Notes Treatment Notes Treatment Clinical Notes Section Notes 08/14/2024 Myofasciitis (ICD-10 - M60.9) Tylenol 08/14/2024 Stented coronary artery (ICD-10 - Z95.5) 09/01/2024 URI (upper respiratory infection) (ICD-10 - J06.9) fluids, rest, supportive measures for fever/symptom relief 11/05/2024 COVID-19 (ICD-10 - U07.1) Fluids, rest, supportive measures for fever and symptoms relief, discussed covid vitamins and isolation period. Patient will hold his atorvastatin while taking the medication as well as 3 days afterward. Plan Of Treatment No Information Insurance Providers Payer Name Payer Address Payer Phone Subscriber Number Group Number Insured Name Patient Relationship to Insured Coverage Start Date Coverage End Date [employer] [facility] [id number] [place], [place] [id number] [phone] [id number] SELENE SIGALA Self - patient is the insured Medications Administered Medication Instructions Date of Administration Dosage Notes Toradol 04/09/2018 1 mL Medical (General) History Medical History History ICD Code allergies Surgical History Surgery Date(Month/Year) RT Knee Colonoscopy 09/28/2019 Heart Cath, stented 12/2023 Heart cath, stented 01/2024 Hospitalization History Reason Date(Month/Year) Fever, Body Aches- [facility] ER 09/29/2019
--- NOTE | 2025-07-24 18:25 | ECG_ITS ---
APPROVED REPORT Exam: Resting ECG HR:79 bpm ECG Measurements Heart Rate 79 AXES RI 156 P 62 QRSd 113 QRS 19 QT 377 T 7 QTc 412 Conclusion SINUS RHYTHM PROBABLE INFERIOR MYOCARDIAL INFARCTION , PROBABLY OLD [35 ms Q WAVE IN II/aVF] ABNORMAL ECG Electronically signed by : MELIZA TAYLOR, 07/24/2025 22:38:33
--- NOTE | 2025-07-24 19:16 | XR_ITS ---
PROCEDURE INFORMATION: Exam: XR Chest Exam date and time: 07/24/2025 7:22 PM Age: 45 years old Clinical indication: Other: Presyncope TECHNIQUE: Imaging protocol: Radiologic exam of the chest. Views: 1 view. COMPARISON: CR XR CHEST 2V 09/21/2023 3:17 AM FINDINGS: Lungs: Unremarkable. No consolidation. Pleural spaces: Unremarkable. No pleural effusion. No pneumothorax. Heart/Mediastinum: Unremarkable. No cardiomegaly. Bones/joints: Unremarkable. IMPRESSION: No acute findings.
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
[2025-07-24 19:27] LABS: Hematocrit 41.4 % (42.0-52.0); Hemoglobin 14.1 g/dL (14.1-18.0); Immature Granulocytes % 0.3 %; Mean Corpuscular HGB Conc 34.1 g/dL (31.8-35.4); Mean Corpuscular Hemoglobin 28.1 pg (27.0-31.2); Mean Corpuscular Volume 82.5 fl (80-94); Nucleated Red Blood Cells % 0 %; Platelet Count 249 K/mm3 (142-424); Red Blood Count 5.02 M/mm3 (4.60-6.20); Red Cell Distribution Width-SD 37.5 fL; White Blood Count 10.6 K/mm3 (4.8-10.8)
[2025-07-24 19:51] LABS: Alanine Aminotransferase 68 U/L (12-78); Albumin Level 3.4 g/dl (3.5-5.0); Albumin/Globulin Ratio 0.9 (1.1-1.8); Alkaline Phosphatase 140 U/L (38-126); Anion Gap 10.0 mEq/L (5-15); Aspartate Amino Transferase 43 U/L (17-59); Bilirubin,Total 0.4 mg/dl (0.2-1.3); Blood Urea Nitrogen 10 mg/dl (9-20); Calcium 8.9 mg/dl (8.4-10.2); Carbon Dioxide 26 mmol/L (22.0-30.0); Chloride 97 mmol/L (98-107); Creatinine Clearance Estimated 285 mL/min (50-200); Creatinine,Serum 0.60 mg/dl (0.66-1.25); Estimated Glomerular Filt Rate 147 ml/min (>60); GFR (African American) 178 ML/MIN (>60); Globulin 3.7 g/dL (1.3-3.2); Magnesium 1.7 mg/dl (1.6-2.3); Potassium 4.0 mmoL/L (3.5-5.1); Sodium 129 mmol/L (136-145); Total Protein,Serum 7.1 g/dl (6.3-8.2)
[2025-07-24 19:52] LABS: D-Dimer 0.61 ug/mL (0.0-0.5)
[2025-07-24 19:55] LABS: Glucose 496 mg/dl (74-100)
--- NOTE | 2025-07-24 19:57 | PC.NURSE ---
critical lab results taken. Glucose 496
[2025-07-24 20:03] LABS: Free T4 (Free Thyroxine) 1.58 ng/dl (0.78-2.19)
[2025-07-24 20:07] LABS: NT Pro Brain Natriuretic Pep. < 20.0 pg/mL (0-125)
[2025-07-24 20:08] LABS: Troponin I < 0.01 ng/ml (0.00-0.034)
[2025-07-24] MEDS: LACTATED RINGERS 1000ML 1,000 ML 999 ML IV (20:08)
[2025-07-24 20:20] LABS: Lactate Venous 1.5 mmol/L (0.4-2.0); VBG HCO3 24.0 mmol/L (23-30); VBG PCO2 41.4 mmol/L (35-51); VBG PH 7.38 mmol/L (7.31-7.41); VBG PO2 45.3 mmol/L (28-40)
[2025-07-24 20:22] LABS: Acetone, Serum (Rapid) None Detected (None Detect)
[2025-07-24 20:26] LABS: Thyroid Stimulating Hormone 1.14 uIU/mL (0.465-4.68)
[2025-07-24 20:27] LABS: Microscopic, Urine URINE MICROSCOPIC (MICROSCOPIC)
[2025-07-24] MEDS: INSULIN HUMAN REGULAR 100 UNITS/ML 10ML VIAL 5 UNIT IV (20:27)
[2025-07-24 20:30] LABS: Bilirubin,Urine Negative (Negative); Color,Urine YELLOW (Yellow); Glucose,Urine (UA) 3+ (Negative); Ketones,Urine TRACE (Negative); Leukocyte Esterase,Urine Negative (Negative); PH,Urine 6.0 (5.0-8.5); Protein,Urine Negative (Negative); Specific Gravity, Urine 1.010 (1.005-1.030); Urobilinogen,Urine 0.2 EU/dl (0.2)
[2025-07-24 20:36] LABS: Hepatitis C Ab Qual. W/ RFX NEGATIVE (Negative)
--- NOTE | 2025-07-24 20:50 | PC.NURSE ---
report called to Audrey MENDOZA
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
[2025-07-24] MEDS: humaLOG 100 UNITS/ML 10ML VIAL (SSI) SUBCUT (22:32)
[2025-07-24 22:45] LABS: Bacteria,Urine Trace /lpf
[2025-07-25 00:14] LABS: Troponin I < 0.01 ng/ml (0.00-0.034)
[2025-07-25 02:48] LABS: Troponin I < 0.01 ng/ml (0.00-0.034)
[2025-07-25 04:00] VITALS: BP 112/62; PULSE 83; RESP 16; TEMP 36.6; O2SAT 97; BMI 36.9
[2025-07-25 05:26] LABS: POC Glucose,Bedside 277 gm/dL (70-110)
[2025-07-25] MEDS: humaLOG 100 UNITS/ML 10ML VIAL (SSI) SUBCUT (05:36)
[2025-07-25 06:46] LABS: Alanine Aminotransferase 63 U/L (12-78); Albumin Level 3.1 g/dl (3.5-5.0); Albumin/Globulin Ratio 0.9 (1.1-1.8); Alkaline Phosphatase 125 U/L (38-126); Anion Gap 8.5 mEq/L (5-15); Aspartate Amino Transferase 44 U/L (17-59); Bilirubin,Total 0.7 mg/dl (0.2-1.3); Blood Urea Nitrogen 7 mg/dl (9-20); Calcium 8.3 mg/dl (8.4-10.2); Carbon Dioxide 25 mmol/L (22.0-30.0); Chloride 101 mmol/L (98-107); Creatinine Clearance Estimated 278 mL/min (50-200); Creatinine,Serum 0.60 mg/dl (0.66-1.25); Estimated Glomerular Filt Rate 147 ml/min (>60); GFR (African American) 178 ML/MIN (>60); Globulin 3.4 g/dL (1.3-3.2); Glucose 285 mg/dl (74-100); Potassium 3.5 mmoL/L (3.5-5.1); Sodium 131 mmol/L (136-145); Total Protein,Serum 6.5 g/dl (6.3-8.2)
[2025-07-25 06:52] LABS: Hematocrit 41.3 % (42.0-52.0); Hemoglobin 13.8 g/dL (14.1-18.0); Immature Granulocytes % 0.3 %; Mean Corpuscular HGB Conc 33.4 g/dL (31.8-35.4); Mean Corpuscular Hemoglobin 28.0 pg (27.0-31.2); Mean Corpuscular Volume 83.8 fl (80-94); Nucleated Red Blood Cells % 0 %; Platelet Count 237 K/mm3 (142-424); Red Blood Count 4.93 M/mm3 (4.60-6.20); Red Cell Distribution Width-SD 38.1 fL; White Blood Count 10.0 K/mm3 (4.8-10.8)
[2025-07-25 08:00] VITALS: BP 121/62; PULSE 87; RESP 18; TEMP 36.6; O2SAT 97
[2025-07-25] MEDS: ATORVASTATIN 40MG TABLET 80 MG PO (08:51)
[2025-07-25] MEDS: METOPROLOL SUCCINATE XL 50MG TABLET 50 MG PO (08:51)
[2025-07-25] MEDS: ASPIRIN EC 81MG TABLET 81 MG PO (08:51)
[2025-07-25] MEDS: METFORMIN 500MG TABLET 500 MG PO (08:51)
[2025-07-25] MEDS: PRASUGREL 10MG TAB 10 MG PO (08:52)
[2025-07-25] MEDS: RANOLAZINE 500MG ER TABLET 500 MG PO (08:52)
--- NOTE | 2025-07-25 08:57 | [facility].PHAINT1 ---
Pharmacy Intervention Comments: MEDICATION RECONCILIATION COMPLETE USING EXTERNAL PHARMACY FILL HISTORY.
[2025-07-25 10:36] LABS: POC Glucose,Bedside 319 gm/dL (70-110)
--- NOTE | 2025-07-25 10:52 | P.DS_ITS ---
General Admission date:: 07/24/25 Discharge date: 07/25/25 HPI HPI HPI: Patient is a 45-year-old male with past medical history significant for coronary artery disease, stented coronary artery, hyperlipidemia. Presents to [facility] secondary to lightheaded/dizziness. Reports progressive unwell feeling for the last several days. Today he developed dizziness, reports multiple separate episodes. Due to ongoing symptoms he opted to follow-up to the emergency department for further evaluation. States symptoms are new to him, denies any known alleviating or aggravating factors. Reported development of leg cramps a couple weeks ago, occurring at nighttime and while driving. Started drinking a moderate amount electrolyte replacement fluids. He also noted symtoms of polydipsia and polyuria over the last several weeks. ED workup included laboratory studies which revealed elevated glucose level 496. Denies known history of diabetes or family history. Per chart review cardiology note on 08/17/24 noted prediabetes with a hemoglobin A1c 6.1. Denies nausea, vomiting, chest pain, chest pressure, shortness of breath. Initial ED workup included laboratory studies revealing sodium 129, glucose 496, alkaline phosphatase 140, albumin 3.4, VBG 7.38, pCO2 41, pO2 45, HCO3 24, total CO2 25. Hemodynamically stable BP 130/58, RR 16, HR 88, temp 97.9, 97% on room air. Imaging study included chest x-ray, I personally reviewed which was unremarkable. Hospital Course Hospital Course Hospital Course: Mr. Aguilar was admitted for new diagnosis of hyperglycemia and diabetes. Initiated on sliding scale insulin. A1c obtained. Glucose doing better by morning and patient feeling significantly better. Given his clinical stability, was initiated on insulin regimen for discharge home with close follow-up with PCP. Problems addressed as follows: New onset diabetes/hyperglycemia/polyuria/polydipsia/presyncope: - Patient presented with classic symptoms of uncontrolled diabetes. Glucose on arrival was 496. Also having some dizziness and presyncope. Received fluid bolus in the ER and was started on short acting insulin with 5 units subcu once in the ER. A1c was obtained, A1c found to be elevated at 13.5. Tolerated sliding scale insulin during admission with improvement in symptoms by morning. Patient had normal white count and hemoglobin remained stable during admission. Chemistry showed improvement in sodium, stable kidney function. Morning glucose of 277 on fingerstick. Potassium normal at 3.5. Was initiated on long-acting insulin with insulin glargine on morning of discharge. Plan to continue insulin glargine regimen with 25 units daily. Demonstrated administration of insulin to patient and he administered a dose to himself prior to discharge home. Will also initiate metformin 500 mg twice daily to improve insulin sensitivity. Recommend follow-up with his PCP within the next week for close monitoring and further adjustments. - ordered glucometer, lancets, test strips. Sent home with insulin glargine pen. Encouraged to monitor glucose at least twice daily and keep a log to discuss with PCP to assess response to current regimen Pseudohyponatremia: Sodium level correction with hyperglycemia, NA 135. Sinew to monitor during admission. Improving by day of discharge. Coronary artery disease/history of coronary artery stents/hyperlipidemia/HTN: Stable, without acute complaint/complication. Normotensive/hemodynamically stable. Home medication-aspirin 81 mg daily, atorvastatin 80 mg daily, metoprolol ER 50 mg daily, prasugrel HCl 10 mg daily, ranolazine ER 500 mg. Total time spent on discharge 32 minutes in counseling, documentation, chart re view, and direct care with patient. Exam Data for Last 24 hours Vital signs and Labs for Last 24 Hours: Temp Pulse Resp BP Pulse Ox O2 Del Method 97.8 F 87 18 121/62 97 Room Air 07/25/25 08:00 07/25/25 08:00 07/25/25 08:00 07/25/25 08:00 07/25/25 08:00 07/25/25 10:11 Laboratory Results - last 24 hr 07/24/25 18:29: Acetone Level None detected, HCV Ab DAMON w/Rflx PCR Qn Negative, HIV Ag/Ab Combo Qual Negative 07/24/25 19:17: WBC 10.6, RBC 5.02, Hgb 14.1, Hct 41.4 L, MCV 82.5, MCH 28.1, MCHC 34.1, RDW 12.8, Plt Count 249, MPV 10.8 H, Neut % (Auto) 56.8, Lymph % (Auto) 34.2, Greene % (Auto) 5.7, Eos % (Auto) 2.1, Baso % (Auto) 0.9, Neut # (Auto) 6.0, Lymph # (Auto) 3.6, Greene # (Auto) 0.6, Eos # (Auto) 0.2, Baso # (Auto) 0.1, D-Dimer 0.61 H, Sodium 129 L, Potassium 4.0, Chloride 97 L, Carbon Dioxide 26, Anion Gap 10.0, BUN 10, Creatinine 0.60 L, Estimated Creat Clear 285, Estimated GFR 147, Est GFR ( Amer) 178, Glucose 496 H*, Calcium 8.9, Magnesium 1.7, Total Bilirubin 0.4, AST 43, ALT 68, Alkaline Phosphatase 140 H, Troponin I < 0.01, NT-Pro-B Natriuret Pep < 20.0, Total Protein 7.1, Albumin 3.4 L, Globulin 3.7 H, Albumin/Globulin Ratio 0.9 L, TSH 1.14, Free T4 1.58 07/24/25 20:02: VBG pH 7.38, VBG pCO2 41.4, VBG pO2 45.3 H, VBG HCO3 24.0, VBG Total CO2 25.3, VBG O2 Saturation 82.8 H, VBG Base Excess -1.1, VBG Lactic Acid 1.5 07/24/25 20:04: Urine Color Yellow, Urine Appearance Clear, Urine pH 6.0, Ur Specific Broussard 1.010, Urine Protein Negative, Urine Glucose (UA) 3+, Urine Ketones Trace, Urine Blood Negative, Urine Nitrate Negative, Urine Bilirubin Negative, Urine Urobilinogen 0.2, Ur Leukocyte Esterase Negative, Urine RBC None, Urine WBC None, Ur Squamous Epith Cells None, Urine Bacteria Trace 07/24/25 22:32: Troponin I < 0.01 07/25/25 01:46 EST: Troponin I < 0.01 07/25/25 04:57: POC Glucose 277 H 07/25/25 06:00: WBC 10.0, RBC 4.93, Hgb 13.8 L, Hct 41.3 L, MCV 83.8, MCH 28.0, MCHC 33.4, RDW 12.7, Plt Count 237, MPV 10.3, Neut % (Auto) 48.9, Lymph % (Auto) 39.7, Greene % (Auto) 7.0, Eos % (Auto) 3.2, Baso % (Auto) 0.9, Neut # (Auto) 4.9, Lymph # (Auto) 4.0, Greene # (Auto) 0.7, Eos # (Auto) 0.3, Baso # (Auto) 0.1, Sodium 131 L, Potassium 3.5, Chloride 101, Carbon Dioxide 25, Anion Gap 8.5, BUN 7 L D, Creatinine 0.60 L, Estimated Creat Clear 278, Estimated GFR 147, Est GFR ( Amer) 178, Glucose 285 H D, Calcium 8.3 L, Total Bilirubin 0.7, AST 44, ALT 63, Alkaline Phosphatase 125, Total Protein 6.5, Albumin 3.1 L, Globulin 3.4 H, Albumin/Globulin Ratio 0.9 L 07/25/25 10:21: POC Glucose 319 H* I & O for Last 24 hours: Intake & Output 07/22/25 07/23/25 07/24/25 07/25/25 23:59 23:59 23:59 22:59 Intake Total 1000 / 1000 540 / 540 Output Total 0 / 0 Balance 1000 / 1000 540 / 540 Weight 127.006 kg 123.74 kg Constitutional Constitutional: no acute distress, obese and cooperative *Routine HEENT Exam Head: Present normocephalic Eye: Present EOMI and PERRL ENT: Present mucous membranes moist *Routine Neck Exam Neck: Present supple; Absent lymphadenopathy *Routine Respiratory Exam Respiratory: Present CTA bilaterally; Absent respiratory distress, rhonchi, stridor, wheezes or crackles *Routine Cardiovascular Exam Cardiovascular: Present RRR *Routine Abdominal Exam Abdominal: Present soft and normoactive bowel sounds; Absent tenderness *Routine Rectal Exam Patient deferred: visual exam *Routine Exam Patient deferred: penile exam *Routine Extremities Exam Extremities: Absent cyanosis, clubbing or edema *Routine Skin Exam Skin: Present warm; Absent rash *Routine Neurological Exam Neurological: Present alert, oriented X3 and moving all extremities; Absent altered mental status Results Data Completed and Pending Labs on day of discharge: Labs from last 24 hours 07/25/25 07/25/25 07/25/25 10:21 06:00 04:57 WBC 10.0 RBC 4.93 Hgb 13.8 L Hct 41.3 L MCV 83.8 MCH 28.0 MCHC 33.4 RDW 12.7 Plt Count 237 MPV 10.3 Neut % (Auto) 48.9 Lymph % (Auto) 39.7 Greene % (Auto) 7.0 Eos % (Auto) 3.2 Baso % (Auto) 0.9 Neut # (Auto) 4.9 Lymph # (Auto) 4.0 Greene # (Auto) 0.7 Eos # (Auto) 0.3 Baso # (Auto) 0.1 D-Dimer VBG pH VBG pCO2 VBG pO2 VBG HCO3 VBG Total CO2 VBG O2 Saturation VBG Base Excess VBG Lactic Acid Sodium 131 L Potassium 3.5 Chloride 101 Carbon Dioxide 25 Anion Gap 8.5 BUN 7 L D Creatinine 0.60 L Estimated Creat Clear 278 Estimated GFR 147 Est GFR ( Amer) 178 Glucose 285 H D POC Glucose 319 H* 277 H Calcium 8.3 L Magnesium Total Bilirubin 0.7 AST 44 ALT 63 Alkaline Phosphatase 125 Troponin I NT-Pro-B Natriuret Pep Total Protein 6.5 Albumin 3.1 L Globulin 3.4 H Albumin/Globulin Ratio 0.9 L TSH Free T4 Urine Color Urine Appearance Urine pH Ur Specific Broussard Urine Protein Urine Glucose (UA) Urine Ketones Urine Blood Urine Nitrate Urine Bilirubin Urine Urobilinogen Ur Leukocyte Esterase Urine RBC Urine WBC Ur Squamous Epith Cells Urine Bacteria Acetone Level HCV Ab DAMON w/Rflx PCR Qn HIV Ag/Ab Combo Qual 07/25/25 07/24/25 07/24/25 01:46 EST 22:32 20:04 WBC RBC Hgb Hct MCV MCH MCHC RDW Plt Count MPV Neut % (Auto) Lymph % (Auto) Greene % (Auto) Eos % (Auto) Baso % (Auto) Neut # (Auto) Lymph # (Auto) Greene # (Auto) Eos # (Auto) Baso # (Auto) D-Dimer VBG pH VBG pCO2 VBG pO2 VBG HCO3 VBG Total CO2 VBG O2 Saturation VBG Base Excess VBG Lactic Acid Sodium Potassium Chloride Carbon Dioxide Anion Gap BUN Creatinine Estimated Creat Clear Estimated GFR Est GFR ( Amer) Glucose POC Glucose Calcium Magnesium Total Bilirubin AST ALT Alkaline Phosphatase Troponin I < 0.01 < 0.01 NT-Pro-B Natriuret Pep Total Protein Albumin Globulin Albumin/Globulin Ratio TSH Free T4 Urine Color Yellow Urine Appearance Clear Urine pH 6.0 Ur Specific Broussard 1.010 Urine Protein Negative Urine Glucose (UA) 3+ Urine Ketones Trace Urine Blood Negative Urine Nitrate Negative Urine Bilirubin Negative Urine Urobilinogen 0.2 Ur Leukocyte Esterase Negative Urine RBC None Urine WBC None Ur Squamous Epith Cells None Urine Bacteria Trace Acetone Level HCV Ab DAMON w/Rflx PCR Qn HIV Ag/Ab Combo Qual 07/24/25 07/24/25 07/24/25 20:02 19:17 18:29 WBC 10.6 RBC 5.02 Hgb 14.1 Hct 41.4 L MCV 82.5 MCH 28.1 MCHC 34.1 RDW 12.8 Plt Count 249 MPV 10.8 H Neut % (Auto) 56.8 Lymph % (Auto) 34.2 Greene % (Auto) 5.7 Eos % (Auto) 2.1 Baso % (Auto) 0.9 Neut # (Auto) 6.0 Lymph # (Auto) 3.6 Greene # (Auto) 0.6 Eos # (Auto) 0.2 Baso # (Auto) 0.1 D-Dimer 0.61 H VBG pH 7.38 VBG pCO2 41.4 VBG pO2 45.3 H VBG HCO3 24.0 VBG Total CO2 25.3 VBG O2 Saturation 82.8 H VBG Base Excess -1.1 VBG Lactic Acid 1.5 Sodium 129 L Potassium 4.0 Chloride 97 L Carbon Dioxide 26 Anion Gap 10.0 BUN 10 Creatinine 0.60 L Estimated Creat Clear 285 Estimated GFR 147 Est GFR ( Amer) 178 Glucose 496 H* POC Glucose Calcium 8.9 Magnesium 1.7 Total Bilirubin 0.4 AST 43 ALT 68 Alkaline Phosphatase 140 H Troponin I < 0.01 NT-Pro-B Natriuret Pep < 20.0 Total Protein 7.1 Albumin 3.4 L Globulin 3.7 H Albumin/Globulin Ratio 0.9 L TSH 1.14 Free T4 1.58 Urine Color Urine Appearance Urine pH Ur Specific Broussard Urine Protein Urine Glucose (UA) Urine Ketones Urine Blood Urine Nitrate Urine Bilirubin Urine Urobilinogen Ur Leukocyte Esterase Urine RBC Urine WBC Ur Squamous Epith Cells Urine Bacteria Acetone Level None detected HCV Ab DAMON w/Rflx PCR Qn Negative HIV Ag/Ab Combo Qual Negative DS: Diagnosis Discharge Diagnosis (1) Diabetes mellitus, new onset: Status: Acute Code(s): E11.9 - Type 2 diabetes mellitus without complications (2) Hyperglycemia: Status: Acute Code(s): R73.9 - Hyperglycemia, unspecified (3) Polyuria: Status: Acute Code(s): R35.89 - Other polyuria (4) Polydipsia: Status: Acute Code(s): R63.1 - Polydipsia (5) Pre-syncope: Status: Acute Code(s): R55 - Syncope and collapse (6) Pseudohyponatremia: Status: Acute Code(s): R79.89 - Other specified abnormal findings of blood chemistry (7) HLD (hyperlipidemia): Status: Acute Code(s): E78.5 - Hyperlipidemia, unspecified Qualifiers: Hyperlipidemia type: mixed hyperlipidemia Qualified Code(s): E78.2 - Mixed hyperlipidemia (8) Coronary artery disease: Status: Acute Code(s): I25.10 - Atherosclerotic heart disease of [place] coronary artery without angina pectoris Qualifiers: Associated angina: without angina Coronary Disease-Associated Artery/Lesion type: [place] artery [place] vs. transplanted heart: [place] heart Qualified Code(s): I25.10 - Atherosclerotic heart disease of [place] coronary art tomas without angina pectoris (9) Stented coronary artery: Status: Acute Code(s): Z95.5 - Presence of coronary angioplasty implant and graft (10) HTN (hypertension): Status: Acute Code(s): I10 - Essential (primary) hypertension (11) Obesity (BMI 30-39.9): Status: Chronic Code(s): E66.9 - Obesity, unspecified Meds Home Medications and Allergies Home Medications ?Medication ?Instructions ?Recorded ?Confirmed ?Type epinephrine 0.3 mg/0.3 mL 0.3 ml SQ NEEDED PRN anap halaxys 11/21/23 07/25/25 History injection, auto-injector nitroglycerin 0.4 mg sublingual 0.4 mg 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 04/20/24 07/25/25 History tablet Pain aspirin 81 mg tablet,delayed 81 mg PO DAILY #90 tabs 0 05/21/24 07/25/25 Rx release (Adult Aspirin Regimen) evolocumab 140 mg/mL subcutaneous 140 mg SQ Q2W #2 mL 06/17/25 07/25/25 Rx pen injector (Repatha SureClick) atorvastatin 80 mg tablet (Lipitor) 80 mg PO DAILY #90 tabs 07/12/25 07/25/25 Rx metoprolol succinate 50 mg 50 mg PO DAILY #30 tabs 07/25/25 Rx tablet,extended release 24 hr (Toprol XL) ranolazine 500 mg tablet,extended 500 mg PO BID #180 t abs 07/12/25 07/25/25 Rx release,12 hr prasugrel HCl 10 mg tablet 10 mg PO DAILY #90 tabs 07/25/25 Rx blood sugar diagnostic (Accu-Chek #100 ea 07/25/25 Rx Guide test strips) blood-glucose meter (Accu-Chek #1 ea 07/25/25 Rx Guide Glucose Meter) insulin glargine 100 unit/mL (3 25 unit (0.25 mL) SQ D AILY #15 mL 07/25/25 Rx mL) subcutaneous pen (Lantus Solostar U-100 Insulin) lancets 30 gauge #200 ea 07/25/25 Rx metformin 500 mg tablet 500 mg PO BIDWMEAL 30 days # 60 tabs 07/25/25 Rx pen needle, diabetic 31 gauge x #100 ea 07/25/25 Rx 1/4 New Prescriptions to Start Prescriptions: blood sugar diagnostic [Accu-Chek Guide test strips] Jeffry Neely blood-glucose meter [Accu-Chek Guide Glucose Meter] Jeffry Neely insulin glargine [Lantus Solostar U-100 Insulin] Jeffry Neely lancets Jeffry Neely metformin Jeffry Neley pen needle, diabetic Jeffry Neely Allergies Allergy/AdvReac Type Severity Reaction Status Date / Time venom-wasp Allergy Intermediate Hives Verified 08/26/24 13:28 Discharge Plan Disposition Patient Disposition: Home, Self-Care Condition: Fair Follow up Plan Follow up with: Jovan Doss MD [Primary Care Provider, Medical] - 2 days Referral Note: Call primary to schedule an appointment on Saturday. Prescriptions/Medication Reconciliation: New metformin 500 mg Tablet 500 mg PO BIDWMEAL 30 Days Qty: 60 0RF insulin glargine [Lantus Solostar U-100 Insulin] 100 unit/mL (3 mL) Insulin P en 25 unit SQ DAILY Qty: 15 0RF Rx Instructions: Sent home with insulin pen from hospital (DME) pen needle, diabetic 31 gauge x 1/4 needle See Rx Instructions .ROUTE .MEDSUPPLY Qty: 100 0RF Rx Instructions: Daily with insulin (DME) blood-glucose meter [Accu-Chek Guide Glucose Meter] Misc See Rx Instructions .Route Qty: 1 0RF Rx Instructions: twice daily (DME) Accu-Chek Guide test strips Strip See Rx Instructions .Route Qty: 100 0RF Rx Instructions: twice daily (DME) lancets 30 gauge misc See Rx Instructions .Route Qty: 200 0RF Rx Instructions: twice daily Continued epinephrine 0.3 mg/0.3 mL auto-injector 0.3 ml SQ NEEDED PRN (Reason: anaphalaxys) nitroglycerin 0.4 mg tablet, sublingual 0.4 mg sublingual Q5MINP PRN (Reason: Chest Pain) aspirin [Adult Aspirin Regimen] 81 mg tablet,delayed release (DR/EC) 81 mg PO DAILY Qty: 90 3RF Repatha SureClick 140 mg/mL pen injector 140 mg SQ Q2W Qty: 2 2RF atorvastatin [Lipitor] 80 mg tablet 80 mg PO DAILY Qty: 90 3RF metoprolol succinate [Toprol XL] 50 mg tablet extended release 24 hr 50 mg PO DAILY Qty: 30 5RF ranolazine 500 mg tablet extended release 12 hr 500 mg PO BID Qty: 180 3RF prasugrel HCl 10 mg tablet 10 mg PO DAILY Qty: 90 0RF Problem Reconciliation Problems Reviewed?: Yes Patient Discharge Instructions ACTIVITY: Continue current activity DIET: continue same diet and diabetic diet Patient Instructions: DI for Hyperglycemia in Adults Print Language: Citizen Of [place] Providers Primary Care Provider: Jovan Doss Admit Provider: Jeffry Neely Attending Provider: Jeffry Neely
[2025-07-25] MEDS: INSULIN GLARGINE 100 UNITS/ML 3ML FLEXPEN 15 UNIT SUBCUT (11:48)
[2025-07-25 11:49] LABS: Hemoglobin A1C 13.5 % (4.0-6.0)
--- NOTE | 2025-07-26 10:22 | SW/DCPLANNER ---
Spoke with patient on the phone. Patient stated that he is doing good. Patient stated that he was able to call his primary care provider and schedule a appointment. 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 Patient stated that he has no concerns or questions at this time. Sandy García
[2025-07-29 16:01] LABS: POC Glucose,Bedside 296 gm/dL (70-110)
== END 2025-07-25 14:15 | disposition home or self-care (01) ==
LOC: ER 18:19 → 2ND 20:24
PROVIDERS: Nurse Practitioner Acute Care; Admitting Provider Internal Medicine Adolescent Medicine; Emergency Provider Emergency Medicine; PCP Family Medicine; Visit Provider Internal Medicine Adolescent Medicine
DX: E11.65 Type 2 diabetes mellitus with hyperglycemia (principal); E87.1 Hypo-osmolality and hyponatremia; I25.118 Atherosclerotic heart disease of native coronary artery with other forms of angina pectoris; E66.9 Obesity, unspecified; I10 Essential (primary) hypertension; R55 Syncope and collapse; E78.2 Mixed hyperlipidemia; F17.210 Nicotine dependence, cigarettes, uncomplicated; Z68.36 Body mass index [BMI] 36.0-36.9, adult; Z91.038 Other insect allergy status; Z95.5 Presence of coronary angioplasty implant and graft; Z79.82 Long term (current) use of aspirin; Z79.02 Long term (current) use of antithrombotics/antiplatelets; Z79.899 Other long term (current) drug therapy
CPT/HCPCS: 36415; 71045; 80053; 81001; 82009; 82803; 82962; 83036; 83735; 83880; 84439; 84443; 84484; 85025; 85378; 86803; 87389; 93005; 96361; 96372; 96374; 99285; G0378; J1650; J7120

== ENCOUNTER 2025-08-11 10:25 | Outpatient (CLI) | payer OTHER, SELFPAY ==
[2025-08-11 11:23] LABS: Hematocrit 45.5 % (42.0-52.0); Hemoglobin 15.0 g/dL (14.1-18.0); Immature Granulocytes % 0.3 %; Mean Corpuscular HGB Conc 33.0 g/dL (31.8-35.4); Mean Corpuscular Hemoglobin 27.9 pg (27.0-31.2); Mean Corpuscular Volume 84.7 fl (80-94); Nucleated Red Blood Cells % 0 %; Platelet Count 314 K/mm3 (142-424); Red Blood Count 5.37 M/mm3 (4.60-6.20); Red Cell Distribution Width-SD 39.0 fL; White Blood Count 9.0 K/mm3 (4.8-10.8)
[2025-08-11 12:05] LABS: Alanine Aminotransferase 72 U/L (12-78); Albumin Level 4.4 g/dl (3.5-5.0); Alkaline Phosphatase 97 U/L (38-126); Anion Gap 12.3 mEq/L (5-15); Aspartate Amino Transferase 28 U/L (17-59); Bilirubin,Direct 0.2 mg/dl (0.0-0.4); Bilirubin,Indirect 0.2 mg/dL (0.0-0.9); Bilirubin,Total 0.4 mg/dl (0.2-1.3); Bilirubin,Unconjugated 0.3 mg/dL (0.0-1.1); Blood Urea Nitrogen 11 mg/dl (9-20); Calcium 9.9 mg/dl (8.4-10.2); Carbon Dioxide 24 mmol/L (22.0-30.0); Chloride 103 mmol/L (98-107); Cholesterol 61 mg/dl (140-200); Creatinine,Serum 0.60 mg/dl (0.66-1.25); Estimated Glomerular Filt Rate 147 ml/min (>60); GFR (African American) 178 ML/MIN (>60); Glucose 215 mg/dl (74-100); HDL Cholesterol 38 mg/dl (40-60); Magnesium 1.8 mg/dl (1.6-2.3); Potassium 4.3 mmoL/L (3.5-5.1); Sodium 135 mmol/L (136-145); Total Protein,Serum 6.7 g/dl (6.3-8.2); Triglycerides 85 mg/dl (30-150)
[2025-08-11 12:20] LABS: Free T4 (Free Thyroxine) 1.16 ng/dl (0.78-2.19)
[2025-08-11 12:35] LABS: Thyroid Stimulating Hormone 1.31 uIU/mL (0.465-4.68)
== END 2025-08-11 23:59 | disposition home or self-care (01) ==
LOC: LAB 10:26
PROVIDERS: PCP Family Medicine; Visit Provider Nurse Practitioner Family
DX: E78.5 Hyperlipidemia, unspecified (principal); I10 Essential (primary) hypertension; I25.10 Atherosclerotic heart disease of native coronary artery without angina pectoris
CPT/HCPCS: 36415; 80048; 80061; 80076; 83735; 84439; 84443; 85025